=== PATIENT | female | born 1965 | race Hispanic/Latino ===

== ENCOUNTER 2017-03-09 22:45 | Emergency (ER) | payer SELFPAY ==
[~2017-03-09 22:45] MED LIST: GLYB1TAB3 PO; LACT PO; PANT40TA25 PO
[2017-03-09 23:20] LABS: BASOPHILS % (AUTO) 0.7 % (0.0-5.0); HEMATOCRIT 33.2 % (36-48); LYMPHOCYTES % (AUTO) 23.5 % (21.0-51.0); MEAN CORPUSCULAR HEMOGLOBIN 27.7 pg (27.0-33.0); MEAN CORPUSCULAR HGB CONC 33.5 g/dL (32.0-36.0); MEAN CORPUSCULAR VOLUME 82.9 fL (79-99); MONOCYTES % (AUTO) 8.9 % (3.0-13.0); NEUTROPHILS % (AUTO) 63.9 % (40.0-77.0); PLATELET COUNT (AUTO) 89 K/uL (130-400); RED CELL DISTRIBUTION WIDTH 16.1 % (11.0-15.5); WHITE BLOOD COUNT (AUTO) 5.4 K/uL (4.8-10.8)
[2017-03-09 23:27] LABS: APPEARANCE,URINE Clear (CLEAR); BILIRUBIN,URINE Negative (NEGATIVE); COLOR,URINE Yellow (YELLOW); GLUCOSE, URINE (UA) Negative (NEGATIVE); KETONES,URINE Negative (NEGATIVE); LEUKOCYTE ESTERASE ,URINE Trace (NEGATIVE); NITRATE,URINE Negative (NEGATIVE); OCCULT BLOOD,URINE Negative (NEGATIVE); PH,URINE 8.5 (5.0-8.0); PROTEIN,URINE Negative (NEGATIVE); UROBILINOGEN,URINE 0.2 mg/dL (0.2-1.0)
[2017-03-09 23:30] LABS: CREATININE 0.6 mg/dL (0.5-1.5); POTASSIUM 3.9 mmol/L (3.5-5.1)
[2017-03-09 23:35] LABS: BACTERIA,URINE None Seen /HPF (None Seen); MUCUS,URINE Few LPF (None Seen); RBC,URINE None Seen /HPF (0-1); SQUAMOUS EPITHELIAL CELL,UR Few /LPF (0-2)
[2017-03-09 23:43] LABS: ALBUMIN 3.3 g/dL (3.5-5.0); BILIRUBIN,TOTAL 0.5 mg/dL (0.2-1.0); TOTAL PROTEIN, SERUM 8.3 g/dL (6.0-8.3)
[2017-03-09] MEDS ORDERED: LIDOCAINE HCL 2% VISCOUS 15 ML UDCUP ONE (23:53)
[2017-03-09] MEDS ORDERED: ONDANSETRON ODT 4 MG TAB ONE (23:53)
[2017-03-09] MEDS ORDERED: MAGNESIUM HYDROXIDE 30 ML/UDCUP ONE (23:53)
[2017-03-09] MEDS ORDERED: FAMOTIDINE 20MG TAB 20 MG TAB PO ONE (23:53)
[2017-03-10] MEDS ORDERED: FAMOTIDINE 20MG TAB 20 MG TAB ONE (00:06)
== END 2017-03-10 00:29 | disposition home or self-care (01) ==
LOC: EDH 22:45
DX: K29.70 Gastritis, unspecified, without bleeding (principal); K74.69 Other cirrhosis of liver; E11.9 Type 2 diabetes mellitus without complications; Z79.4 Long term (current) use of insulin
CPT/HCPCS: 36415; 80053; 81001; 82550; 83690; 84484; 85025

== ENCOUNTER 2017-12-19 21:03 | Emergency (ER) | payer SELFPAY ==
[2017-12-19 22:04] LABS: APPEARANCE,URINE Clear (CLEAR); BILIRUBIN,URINE Negative (NEGATIVE); COLOR,URINE Yellow (YELLOW); GLUCOSE, URINE (UA) Negative (NEGATIVE); KETONES,URINE Negative (NEGATIVE); LEUKOCYTE ESTERASE ,URINE Trace (NEGATIVE); NITRATE,URINE Negative (NEGATIVE); OCCULT BLOOD,URINE Negative (NEGATIVE); PROTEIN,URINE Negative (NEGATIVE)
[2017-12-19 22:12] LABS: AMPHET/METH SCREEN,URINE NEGATIVE (NEGATIVE); BARBITURATE SCREEN, URINE NEGATIVE (NEGATIVE); BENZODIAZEPINES SCREEN,URINE NEGATIVE (NEGATIVE); CANNABINOID SCREEN,URINE NEGATIVE (NEGATIVE); COCAINE SCREEN,URINE NEGATIVE (NEGATIVE); OPIATE SCREEN,URINE NEGATIVE (NEGATIVE); PHENCYCLIDINE SCREEN,URINE NEGATIVE (NEGATIVE)
[2017-12-19 22:17] LABS: BACTERIA,URINE Rare /HPF (None Seen); WBC,URINE 0-1 /HPF (0-1)
[2017-12-19 22:18] LABS: RBC,URINE None Seen /HPF (0-1)
[2017-12-19 22:29] LABS: BASOPHILS % (AUTO) 0.9 % (0.0-5.0); HEMATOCRIT 37.1 % (36-48); LYMPHOCYTES % (AUTO) 27.4 % (21.0-51.0); MEAN CORPUSCULAR VOLUME 91.5 fL (79-99); MONOCYTES % (AUTO) 11.7 % (3.0-13.0); PLATELET COUNT (AUTO) 82 K/uL (130-400); RED BLOOD CELL COUNT(AUTO) 4.05 MIL/uL (4.00-5.50); RED CELL DISTRIBUTION WIDTH 13.9 % (11.0-15.5); WHITE BLOOD COUNT (AUTO) 4.6 K/uL (4.8-10.8)
[2017-12-19 22:38] LABS: CREATININE 0.7 mg/dL (0.5-1.5); POTASSIUM 4.1 mmol/L (3.5-5.1)
[2017-12-19 22:40] LABS: INR 1.04 (0.85-1.15); PARTIAL THROMBOPLASTIN TIME 27.5 SEC (26.3-35.5); PROTHROMBIN TIME 10.9 SEC (9.6-11.6)
[2017-12-19] MEDS ORDERED: HYOSCYAMINE SULFATE 0.125 MG TAB.SUBL SL ONE (22:41)
[2017-12-19] MEDS ORDERED: ONDANSETRON HCL 4 MG/2 ML VIAL ONE (22:41)
[2017-12-19 22:43] LABS: ALBUMIN 3.4 g/dL (3.5-5.0); BILIRUBIN,TOTAL 0.7 mg/dL (0.2-1.0); TOTAL PROTEIN, SERUM 7.9 g/dL (6.0-8.3)
== END 2017-12-19 23:41 | disposition home or self-care (01) ==
LOC: EDH 21:03
DX: K74.69 Other cirrhosis of liver (principal); D69.59 Other secondary thrombocytopenia; I10 Essential (primary) hypertension
CPT/HCPCS: 36415; 71045; 80053; 80305; 81001; 82150; 82550; 85025; 85610; 85730; 93005; 96374; 99285; J2405

== ENCOUNTER 2022-06-30 20:41 | Emergency (ER) | payer OTHER, SELFPAY ==
[~2022-06-30] VITALS: Ht 152.4 cm; Wt 74.8 kg
[~2022-06-30 20:41] MED LIST changes: -PANT40TA25 PO; +PANT40TA55 PO
[2022-06-30 22:06] LABS: BASOPHILS % (AUTO) 0.5 % (0.0-5.0); EOSINOPHILS % (AUTO) 4.6 % (0.0-8.0); HEMATOCRIT 30.3 % (36-48); LYMPHOCYTES % (AUTO) 20.3 % (21.0-51.0); MEAN CORPUSCULAR HEMOGLOBIN 28.9 pg (27.0-33.0); MEAN CORPUSCULAR HGB CONC 31.7 g/dL (32.0-36.0); MEAN CORPUSCULAR VOLUME 91.3 fL (79-99); MONOCYTES % (AUTO) 12.9 % (3.0-13.0); NEUTROPHILS % (AUTO) 61.2 % (40.0-77.0); PLATELET COUNT (AUTO) 92 K/uL (130-400); RED BLOOD CELL COUNT(AUTO) 3.32 MIL/uL (4.00-5.50); RED CELL DISTRIBUTION WIDTH 14.8 % (11.0-15.5); WHITE BLOOD COUNT (AUTO) 5.7 K/uL (4.8-10.8)
[2022-06-30 22:14] LABS: CREATININE 0.8 mg/dL (0.5-1.5); POTASSIUM 4.4 mmol/L (3.5-5.1)
[2022-06-30 22:15] LABS: INR 1.08 (0.85-1.15); PROTHROMBIN TIME 11.7 SEC (9.6-11.6)
[2022-06-30 22:16] LABS: PARTIAL THROMBOPLASTIN TIME 26.3 SEC (26.3-35.5)
[2022-06-30 22:19] LABS: APPEARANCE,URINE CLEAR (CLEAR); BILIRUBIN,URINE NEGATIVE (NEGATIVE); COLOR,URINE LIGHT-YELLOW (YELLOW); GLUCOSE, URINE (UA) 70 mg/dL (NEGATIVE); KETONES,URINE NEGATIVE (NEGATIVE); LEUKOCYTE ESTERASE ,URINE 250 Leu/uL (NEGATIVE); NITRATE,URINE NEGATIVE (NEGATIVE); OCCULT BLOOD,URINE SMALL (NEGATIVE); PROTEIN,URINE NEGATIVE (NEGATIVE); UROBILINOGEN,URINE 0.2 mg/dL (0.2-1.0)
[2022-06-30 22:19] LABS: ALBUMIN 3.1 g/dL (3.5-5.0); TOTAL PROTEIN, SERUM 7.5 g/dL (6.0-8.3)
[2022-06-30 22:25] LABS: BACTERIA,URINE FEW /HPF (None Seen); RBC,URINE 0-1 /HPF (0-1); SQUAMOUS EPITHELIAL CELL,UR RARE /HPF (0-2); WBC,URINE 26-50 /HPF (0-1)
[2022-07-01 04:49] VITALS: BP 130/66
[2022-07-01] MEDS ORDERED: HYDR25SU38 RC (04:54)
== END 2022-07-01 05:13 | disposition home or self-care (01) ==
LOC: EDH 20:41
DX: K64.9 Unspecified hemorrhoids (principal); I10 Essential (primary) hypertension; E11.9 Type 2 diabetes mellitus without complications; K74.60 Unspecified cirrhosis of liver; Z79.899 Other long term (current) drug therapy; Z98.890 Other specified postprocedural states
CPT/HCPCS: 36415; 80053; 81001; 82140; 85025; 85610; 85730; 86850; 86900; 86901; 87077; 87088; 87186

== ENCOUNTER 2024-06-07 00:02 | Inpatient (IN) | payer BC ==
[~2024-06-07] VITALS: Ht 152.4 cm; Wt 59.6 kg
[~2024-06-07 00:02] MED LIST changes: +HYDR25SU38 RC
[2024-06-07 00:42] LABS: INR 1.18 (0.85-1.15); PROTHROMBIN TIME 12.3 SEC (9.6-11.6)
[2024-06-07 00:44] LABS: BASOPHILS # (AUTO) 0.03 K/uL (0.00-0.20); BASOPHILS % (AUTO) 0.8 % (0.0-5.0); EOSINOPHILS # (AUTO) 0.13 K/uL (0.00-0.70); EOSINOPHILS % (AUTO) 3.4 % (0.0-8.0); HEMATOCRIT 43.4 % (36-48); IMMATURE GRANULOCYTE ABSOLUTE 0.01 K/uL (0-1); LYMPHOCYTES # (AUTO) 0.8 K/uL (1.0-4.8); LYMPHOCYTES % (AUTO) 21.6 % (21.0-51.0); MEAN CORPUSCULAR HEMOGLOBIN 29.3 pg (27.0-33.0); MEAN CORPUSCULAR HGB CONC 32.7 g/dL (32.0-36.0); MEAN CORPUSCULAR VOLUME 89.5 fL (79-99); MONOCYTES # (AUTO) 0.4 K/uL (0.1-1.0); MONOCYTES % (AUTO) 11.1 % (3.0-13.0); NEUTROPHILS # (AUTO) 2.4 K/uL (1.8-7.7); NEUTROPHILS % (AUTO) 62.8 % (40.0-77.0); PARTIAL THROMBOPLASTIN TIME 28.5 SEC (26.3-35.5); PLATELET COUNT (AUTO) 80 K/uL (130-400); RED BLOOD CELL COUNT(AUTO) 4.85 MIL/uL (4.00-5.50); RED CELL DISTRIBUTION WIDTH 18.2 % (11.0-15.5); WHITE BLOOD COUNT (AUTO) 3.8 K/uL (4.8-10.8)
[2024-06-07 00:49] LABS: CREATININE 0.9 mg/dL (0.5-1.0); POTASSIUM 3.5 mmol/L (3.5-5.1)
[2024-06-07 00:54] LABS: MAGNESIUM 1.5 mg/dL (1.80-2.40)
[2024-06-07 01:08] LABS: B-TYPE NATRIURETIC PEPTIDE 66 pg/mL (0-100)
--- NOTE | 2024-06-07 02:09 | ERN ---
General Chief Complaint: Chest Pain Stated Complaint: C/O CP WITH SOB Time Seen by MD: 00:07 Time Seen by Midlevel: 00:07 Source: patient History of Present Illness Initial Comments The patient is a 59-year-old female with a past medical history of type 2 diabetes, hypothyroidism, and liver cirrhosis presenting to the emergency department for evaluation of chest pain and increased shortness of breath. The patient is O2 dependent at home and is usually on 3 L however over the last couple of days she has been having dyspnea on exertion. She reports having previous thoracentesis and today she feels similar to the previous time she was needed one. Denies any other symptoms. Allergies: Coded Allergies: No Known Allergies (Verified Allergy, Unknown, 04/08/15) Home Meds Active Scripts Hydrocortisone Acetate (Anusol-Hc) 25 Mg Supp.rect, 25 MG RC BID for 10 Days, #20 EA 1 Refill Prov:MIGUEL ESCAMILLA MD 07/01/22 Lactulose (Cephulac/Enulose Soln) 20 Gm/30 Ml Soln, 20 GM PO BID for 60 Days, ML Prov:TRISTAN MCKEON MD 12/28/16 Pantoprazole Sodium (Protonix) 40 Mg Ectab, 40 MG PO DAILY, #60 TAB.EC Prov:TRISATN MCKEON MD 04/12/15 Reported Medications Glyburide/Metformin HCl (Glucovance 5-500 mg Tablet) 1 Each Tablet, 0.5 EACH PO DAILYDINNER, TAB 04/10/15 Glyburide/Metformin HCl (Glucovance 5-500 mg Tablet) 1 Each Tablet, 1 EACH PO DAILYBKFST, TAB 04/10/15 Past Medical History Past Medical History: Diabetes-Type II, Hypothyroid, Other Medical History Other: HX OF CIRRHOSIS Past Surgical History: None Surgical History Other: HEMRRHOIDECTOMY X2 JUNE 16, 2022 ROS Dictation CONSTITUTIONAL: Negative except for HPI HEAD/FACE: Negative except for HPI EENT: Negative except for HPI RESPIRATORY: Negative except for HPI GASTROINTESTINAL/ABDOMINAL: Negative except for HPI GENITOURINARY: Negative except for HPI MUSCULOSKELETAL: Negative except for HPI INTEGUMENTARY: Negative except for HPI NEUROLOGICAL/PSYCH: Negative except for HPI HEMATOLOGIC/LYMPHATIC: Negative except for HPI All Systems Negative, Except as noted above. 13 point review of systems assessed and all negative except for above. Physical Exam Physical Exam Dictation Vital Signs reviewed General Appearance: Alert, oriented x 3, no acute distress, chronically ill- appearing Head and Face: non-traumatic. Eyes: PERRL, pink conjunctivas, eyelid no trauma, anterior chamber with arcus senilis. Ears: Pinnas intact and no signs of trauma or erythema ear canals clear and no discharge TM no erythema Nose: No discharge, no bleeding. Oropharynx: Mouth normal, tongue pink, pharynx clear,no erythema, tonsils no exudates, no abscesses noted, mucous membrane moist Neck: Supple, non-tender, no thyromegaly, no masses, no JVD, no bruits Breast:Deferred Chest:No tenderness, no crepitus, no paradoxical movement, no retractions Lungs: Good breath sounds to the left lung field, diminished breath sounds to the right lower lobe, right middle lobe Heart: Regular rate, regular rhythm, no murmur, no gallops Vascular: no peripheral edema, Abdomen: Soft, positive bowel sounds, nondistended, no guarding, nontender, no rebound, no masses no hepatomegaly, no splenomegaly, no Jo's sign, no hernias. Rectal: Deferred Genital: Deferred Neurological: Normal speech, motor function intact, sensory function intact Musculoskeletal: Neck nontender, full range of motion, back nontender, full range of motion, Extremities: nontender, full range of motion Skin: Color pink, dry, no turgor, no rash, no lacerations, no abrasions, no contusions. Lymphatic: Deferred Results Laboratory and Microbiology Lab and Micro Result Laboratory Tests Test 06/07/24 00:23 White Blood Count 3.8 K/uL (4.8-10.8) L Red Blood Count 4.85 MIL/uL (4.00-5.50) Hemoglobin 14.2 g/dL (12.0-16.0) Hematocrit 43.4 % (36-48) Mean Corpuscular Volume 89.5 fL (79-99) Mean Corpuscular Hemoglobin 29.3 pg (27.0-33.0) Mean Corpuscular Hemoglobin Concent 32.7 g/dL (32.0-36.0) Red Cell Distribution Width 18.2 % (11.0-15.5) H Platelet Count 80 K/uL (130-400) L Mean Platelet Volume 10.7 fL (7.5-10.5) H Immature Granulocyte % (Auto) 0.3 % (0-1) Neutrophils (%) (Auto) 62.8 % (40.0-77.0) Lymphocytes (%) (Auto) 21.6 % (21.0-51.0) Monocytes (%) (Auto) 11.1 % (3.0-13.0) Eosinophils (%) (Auto) 3.4 % (0.0-8.0) Basophils (%) (Auto) 0.8 % (0.0-5.0) Neutrophils # (Auto) 2.4 K/uL (1.8-7.7) Lymphocytes # (Auto) 0.8 K/uL (1.0-4.8) L Monocytes # (Auto) 0.4 K/uL (0.1-1.0) Eosinophils # (Auto) 0.13 K/uL (0.00-0.70) Basophils # (Auto) 0.03 K/uL (0.00-0.20) Absolute Immature Granulocyte (auto 0.01 K/uL (0-1) Nucleated Red Blood Cells 0.0 % (0.0-0.19) Red Blood Cell Morphology See comments Prothrombin Time 12.3 SEC (9.6-11.6) H Prothromb Time International Ratio 1.18 (0.85-1.15) H Activated Partial Thromboplast Time 28.5 SEC (26.3-35.5) Sodium Level 141 mmol/L (136-145) Potassium Level 3.5 mmol/L (3.5-5.1) Chloride Level 106 mmol/L (101-111) Carbon Dioxide Level 26 mmol/L (21-32) Blood Urea Nitrogen 12 mg/dL (7-18) Creatinine 0.9 mg/dL (0.5-1.0) Glomerular Filtration Rate Calc 73 mL/min (>90) Random Glucose 161 mg/dL (70-105) H Lactic Acid Level 2.4 mmol/L (0.8-2.5) Total Calcium 9.8 mg/dL (8.5-10.1) Magnesium Level 1.50 mg/dL (1.80-2.40) L Total Creatine Kinase 53 U/L (21-232) # Troponin I High Sensitivity 6 ng/L (4-50) B-Type Natriuretic Peptide 66 pg/mL (0-100) Labs Reviewed?: Yes MDM MDM: Differential diagnosis: Acute on chronic respiratory failure, pleural effusion, pneumonia, pulmonary edema Rationale: Tests considered and ordered secondary to shared decision making include: Previous outside records reviewed: Old ER visits. Risk of complication and/or morbidity or mortality of patient management: None Medications-Per medication reconciliation Need for hospitalization: Patient does meet criteria for hospitalization. Need for emergency major/minor surgery: No There are no social concerns with this patient. Prescription drug management Prescriptions will include symptomatic care Patient's prior external medical records from other ER visits were reviewed by me as indicated. Prior testing and results from previous visits were reviewed. Prior tests were taken into account with medical decision making and resource utilization, independent historian/historians were used to obtain complete medical history. I independently interpreted the test that were performed, results were reviewed by me and considered findings on radiology if ordered. Medical management and examination interpretation discussions were had by me with other qualified healthcare professionals as indicated for the patient's care. ED Course Orders Procedure Category Date Status Time 12 Lead Ekg Tracing- EKG 06/07/24 Logged Technical 00:10 Cbc With Differential LAB 06/07/24 Complete 00:10 Basic Metabolic Panel LAB 06/07/24 Complete 00:10 B-Type Natriuretic LAB 06/07/24 Complete Peptide 00:10 Magnesium LAB 06/07/24 Complete 00:10 Lactic Acid LAB 06/07/24 Complete 00:10 Urinalysis Profile LAB 06/07/24 Logged 00:10 Troponin I High LAB 06/07/24 Complete Sensitivity 00:10 Chest 1vw RAD 06/07/24 Taken 00:10 Pt And Ptt LAB 06/07/24 Complete 00:10 Creatine Kinase, Total LAB 06/07/24 Complete 00:10 Ct Chest W/Contrast CT 06/07/24 Logged 01:14 Vital Signs Date Time Temp Pulse Resp B/P (MAP) Pulse Ox O2 Delivery O2 Flow Rate FiO2 06/07/24 00:20 97.2 86 26 99/56 93 Nasal Cannula* 3 32 06/07/24 00:06 97.0 93 24 108/62 95 Nasal Cannula 3.0 DX & DISP Disposition: Inpatient Decision to Admit Date: Jun 07, 2024 Departure Impression: Primary Impression: Pleural effusion, right Additional Impression: Acute and chronic respiratory failure Condition: Stable Referrals: BIJAN MCKEON MD (PCP) I have reviewed the case, and I agree with, Diagnosis and Plan I performed the substantive portion of the visit. I have reviewed and personally made and approve the management plan that is documented in the note by myself or the AMELIA. I acknowledge for responsibility for the patient's management plan. TODD ALVAREZ Jun 07, 2024 02:09
--- NOTE | 2024-06-07 02:18 | HP ---
[facility] Date of Service: Jun 07, 2024 Time of Service: 02:18 HISTORY OF PRESENT ILLNESS: This is a 59 year old [place]bourgish-speaking female with past medical history of liver cirrhosis,on home O2 dependent , diabetes and hypothyroidism who presents to the ED for complaints of chest pain and shortness of breath which started today.Patient reports having dry cough and body chills which started today as well. Seen and examined patient in the ER awake,alert and coherent appears mild short of breath.Patient reports having chest pain during coughing episode.Patient denies palpitation,nausea,vomiting,sorethoat,edema and abdominal pain. Latest vital signs temperature 97.2 heart rate 86 respiration 26 blood pressure 99/56 saturation 93% on 3 L nasal cannula. Labs WBC 3.8, hemoglobin 14, hematocrit 43 platelet count 80. Glucose 161 lactic acid 2.4 magnesium 1.5 troponin six BNP 66 the rest of the chemistry is unremarkable. EKG unavailable at this time Chest x-ray result is still pending at this time. While in the ER patient received Tylenol 650 mg p.o., Zofran 4 mg IV Rocephin IV. We will admit patient for further medical management. REVIEW OF SYSTEMS CONSTITUTIONAL: Denies fevers, chills, or night sweats. No unintentional weight loss reported. NEUROLOGICAL: Denies headache, amaurosis fugax, motor weakness, sensory deficit, vertigo/spinning sensation, gait abnormalities, or tremors. ENT: No hearing loss, otalgia, otorrhea, rhinitis, rhinorrhea, hoarseness, or sore throat. CARDIOVASCULAR: Positive pleuritic chest pain Denies any exertional angina, dyspnea on exertion, orthopnea, paroxysmal nocturnal dyspnea, palpitations, life-threatening arrhythmias, claudication. PULMONARY: Complains of dry cough shortness of breaths Deniesphlegm/sputum, hemoptysis, SLEEP: Denies morning headaches, daytime somnolence or napping. Denies difficulty falling asleep, staying asleep, waking from sleep. Denies knowledge of snoring. GASTROINTESTINAL: Denies any type of dysphagia to either liquids or solids. Denies nausea, vomiting, pyrosis, early satiety, abdominal pain, diarrhea, constipation, or changes in stool consistency or caliber. Denies coffee-ground emesis, hematemesis, hematochezia, or melanotic stools. GENITOURINARY: Denies frequency, urgency, nocturia, hematuria or incontinence (Storage/Irritative symptoms.) Low urinary stream, straining to void, urinary intermittency or hesitancy, splitting of the voiding stream, terminal dribbling. ENDOCRINOLOGIC: Denies polyuria, polydipsia, polyphagia or heat/cold intoler ances. HEMATOLOGIC: Denies thrombophilia/previous clots, or coagulopathy/bleeding disorders. ONCOLOGIC: Denies personal history of malignancy. DERMATOLOGIC: Denies rashes or pruritus. PSYCHIATRIC: Denies any suicidal or homicidal ideation. Denies hallucinations. PAST MEDICAL HISTORY: [ Liver cirrhosis, oxygen dependent at home, hypertension and hypothyroidism ] PAST SURGICAL HISTORY: [ Patient denies ] PAST SOCIAL HISTORY: [ Patient lives with ileus. Patient denies alcohol tobacco and recreational drug use] FAMILY HISTORY: [ Diabetes ] Coded Allergies: No Known Allergies (Verified Allergy, Unknown, 04/08/15) PHYSICAL EXAM GENERAL APPEARANCE: The patient is awake, alert, and oriented, in no acute cardiopulmonary distress. NEUROLOGICAL: Cranial nerves II-XII grossly intact. Motor is 5/5 in bilateral upper and lower extremities proximal to distal. No sensory deficits. HEENT: Face is symmetric. Pupils are equal and reactive. Extraocular movements are intact. NECK: Supple. No JVD. No thyromegaly. No submental, submandibular, pre- /postauricular, occipital or supraclavicular lymphadenopathy. CHEST: Normal chest expansion. No Telemetry. LUNGS: Diminished right lung sound per auscultation CARDIOVASCULAR: Regular. S1 and S2 normal. No appreciable rubs, murmurs or gallops. ABDOMEN: Soft, nontender, and nondistended. There is no rebound, voluntary guarding, or rigidity. : Deferred. No Jaramillo. EXTREMITIES: Non-edematous and not cyanotic. No clubbing. Good capillary refill. SKIN: No skin breakdown. Vital Sign (Last 24 Hours) 06/07/24 00:20 Temp 97.2 Pulse 86 Resp 26 B/P (MAP) 99/56 Pulse Ox 93 O2 Delivery Nasal Cannula* O2 Flow Rate 3 FiO2 32 LABS: Laboratory: Test 06/07/24 00:23 Range/Units White Blood Count 3.8 L 4.8-10.8 K/uL Red Blood Count 4.85 4.00-5.50 MIL/uL Hemoglobin 14.2 12.0-16.0 g/dL Hematocrit 43.4 36-48 % Mean Corpuscular Volume 89.5 79-99 fL Mean Corpuscular Hemoglobin 29.3 27.0-33.0 pg Mean Corpuscular Hemoglobin Concent 32.7 32.0-36.0 g/dL Red Cell Distribution Width 18.2 H 11.0-15.5 % Platelet Count 80 L 130-400 K/uL Mean Platelet Volume 10.7 H 7.5-10.5 fL Immature Granulocyte % (Auto) 0.3 0-1 % Neutrophils (%) (Auto) 62.8 40.0-77.0 % Lymphocytes (%) (Auto) 21.6 21.0-51.0 % Monocytes (%) (Auto) 11.1 3.0-13.0 % Eosinophils (%) (Auto) 3.4 0.0-8.0 % Basophils (%) (Auto) 0.8 0.0-5.0 % Neutrophils # (Auto) 2.4 1.8-7.7 K/uL Lymphocytes # (Auto) 0.8 L 1.0-4.8 K/uL Monocytes # (Auto) 0.4 0.1-1.0 K/uL Eosinophils # (Auto) 0.13 0.00-0.70 K/uL Basophils # (Auto) 0.03 0.00-0.20 K/uL Absolute Immature Granulocyte (auto 0.01 0-1 K/uL Nucleated Red Blood Cells 0.0 0.0-0.19 % Red Blood Cell Morphology See comments Prothrombin Time 12.3 H 9.6-11.6 SEC Prothromb Time International Ratio 1.18 H 0.85-1.15 Activated Partial Thromboplast Time 28.5 26.3-35.5 SEC Sodium Level 141 136-145 mmol/L Potassium Level 3.5 3.5-5.1 mmol/L Chloride Level 106 101-111 mmol/L Carbon Dioxide Level 26 21-32 mmol/L Blood Urea Nitrogen 12 7-18 mg/dL Creatinine 0.9 0.5-1.0 mg/dL Glomerular Filtration Rate Calc 73 >90 mL/min Random Glucose 161 H 70-105 mg/dL Lactic Acid Level 2.4 0.8-2.5 mmol/L Total Calcium 9.8 8.5-10.1 mg/dL Magnesium Level 1.50 L 1.80-2.40 mg/dL Total Creatine Kinase 53 # 21-232 U/L Troponin I High Sensitivity 6 4-50 ng/L B-Type Natriuretic Peptide 66 0-100 pg/mL DIAGNOSTICS / RADIOLOGY: [ ] ASSESSMENT: Acute on chronic respiratory failure on home O2 POA Acute right pleural effusion POA Acute thrombocytopenia POA Uncontrolled diabetes POA Hypothyroidism POA Hypomagnesemia POA PLAN: We will admit patient in medical telemetry We will start on heart healthy diet We will start on Famotidine 20 mg IV daily for GI prophylaxis We will start on Rocephin 1 g IV daily for empiric coverage We will replace electrolytes as needed per protocol We will start on insulin sliding scale AC & HS with hypoglycemia protocol We will add prn medication for fever,pain,cough , nausea and vomiting We will reconcile home meds once medlist available We will trend troponin q.6 x2 Follow up urinalysis and CT chest result We will seek pulmonology consultation May continue oxygen supplementation to keep saturation above 92% We will request labs in am Further orders to follow depending on above results Case discussed with attending physician and came up with above treatment and plan of care. ADVANCED CARE PLANNING 1. Which of the following were discussed? Hospice Care - No Therapeutic options - Yes Advance Directives - No Other discussions - 2. Discussed with who? Patient and Domo 3. Voluntary nature of this service was explained to the patient? Yes 4. Amount of time spent - __22 5. Reviewed by Physician? (if this service was performed by NPP) Yes Patient seen and examined by me. Agree with note by [employer] SEE ADDITIONAL ORDERS PER CHART DISCUSSED WITH NURSING STAFF RENÉE NEELY PUNCH HAND Jun 07, 2024 02:18
[2024-06-07] MEDS ORDERED: DEXTROSE 50%-WATER 50 ML DISP.SYRIN IV PRN (02:30)
[2024-06-07] MEDS ORDERED: ondanSETRON 4MG INJ IV PRN ×2 (02:30→03:00)
[2024-06-07] MEDS ORDERED: PoTASSium chloRIDE 20MEQ/100ML 100 ML IV PRN (02:30)
[2024-06-07] MEDS ORDERED: PoTASSium chl 10% ELIXIR 20MEQ 20 MEQ/15 ML UDCUP PO PRN (02:30)
[2024-06-07] MEDS ORDERED: GLUCAGON 1MG KIT 1 MG ML IM PRN (02:30)
[2024-06-07] MEDS ORDERED: acetaMINOPHEN 325 MG TAB PO PRN ×3 (02:30→03:00)
[2024-06-07] MEDS ORDERED: guaiFENesin-DM 200/20MG 10ML PO PRN (02:30)
[2024-06-07] MEDS ORDERED: levoFLOXacin 500 MG/D5W 100 ML 100 ML IV SCH (02:30)
[2024-06-07] MEDS ORDERED: cefTRIAXone 1G VIAL 2 GM in 0.9%NACL 100ML 100 ML IV SCH (03:00)
[2024-06-07 03:26] LABS: HEMOGLOBIN A1C 6.3 % (4.0-6.0)
[2024-06-07] MEDS ORDERED: IOHEXOL-350 75 ML VIAL IV ONE (03:53)
[2024-06-07] MEDS: MAGNESIUM 2GM PREMIX 50ML 50 ML IV PRN (06:03)
[2024-06-07] MEDS: furoSEMIDE 20MG VIAL IV ONE (06:03)
[2024-06-07] MEDS: acetaMINOPHEN 325 MG TAB PO PRN (06:04)
[2024-06-07] MEDS: cefTRIAXone 1G VIAL IVPB SCH (06:04)
[2024-06-07 06:11] LABS: BASOPHILS # (AUTO) 0.04 K/uL (0.00-0.20); EOSINOPHILS # (AUTO) 0.17 K/uL (0.00-0.70); EOSINOPHILS % (AUTO) 4.4 % (0.0-8.0); HEMATOCRIT 38.7 % (36-48); IMMATURE GRANULOCYTE ABSOLUTE 0.01 K/uL (0-1); LYMPHOCYTES # (AUTO) 0.6 K/uL (1.0-4.8); LYMPHOCYTES % (AUTO) 16.4 % (21.0-51.0); MEAN CORPUSCULAR HEMOGLOBIN 28.8 pg (27.0-33.0); MONOCYTES # (AUTO) 0.4 K/uL (0.1-1.0); MONOCYTES % (AUTO) 11.5 % (3.0-13.0); NEUTROPHILS # (AUTO) 2.6 K/uL (1.8-7.7); NEUTROPHILS % (AUTO) 66.4 % (40.0-77.0); PLATELET COUNT (AUTO) 68 K/uL (130-400); WHITE BLOOD COUNT (AUTO) 3.8 K/uL (4.8-10.8)
[2024-06-07 06:37] LABS: ALBUMIN 2.4 g/dL (3.5-5.0); BILIRUBIN,TOTAL 0.9 mg/dL (0.2-1.0); CREATININE 0.7 mg/dL (0.5-1.0); MAGNESIUM 1.5 mg/dL (1.80-2.40); POTASSIUM 3.4 mmol/L (3.5-5.1); TOTAL PROTEIN, SERUM 6.8 g/dL (6.0-8.3)
--- NOTE | 2024-06-07 07:04 | EKG ---
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
[2024-06-07] MEDS: INSULIN humuLIN R 100 UNIT/ML 3ML SQ SCH (07:30)
--- NOTE | 2024-06-07 07:30 | NUR ---
PATIENT REFUSED BLOOD GLUCOSE CHECK. STATED SHE WANTED TO REST. EDUCATED PATIENT ON THE IMPORTANCE TO MONITOR BLOOD GLUCOE PER PHYSICIANS ORDERS.
[2024-06-07 07:32] LABS: APPEARANCE,URINE CLEAR (CLEAR); BILIRUBIN,URINE NEGATIVE (NEGATIVE); COLOR,URINE LIGHT-YELLOW (YELLOW); GLUCOSE, URINE (UA) NEGATIVE (NEGATIVE); KETONES,URINE NEGATIVE (NEGATIVE); LEUKOCYTE ESTERASE ,URINE NEGATIVE Leu/uL (NEGATIVE); NITRATE,URINE NEGATIVE (NEGATIVE); OCCULT BLOOD,URINE NEGATIVE (NEGATIVE); PH,URINE 5.5 (5.0-8.0); PROTEIN,URINE NEGATIVE (NEGATIVE); UROBILINOGEN,URINE 0.2 mg/dL (0.2-1.0)
[2024-06-07 07:39] LABS: ADD UA MICROSCOPIC NO
--- NOTE | 2024-06-07 09:21 | HMCIMG ---
CT angiogram chest CLINICAL INDICATION: right pleural effusion COMPARISON: None. CT Dose Index (CTDI): 113.50 mGy Dose Length Product (DLP): 1408.10 total mGy PROTOCOL: Contrast: 100 cc of Isovue-370, injected IV, no complications Examination is done at 2.5 millimeter volumetric acquisition after contrast administration. Photography is done at 5 millimeter thick intervals for the thorax. FINDINGS: There is no evidence of pulmonary embolism. The airway is intact. The trachea and major bronchi are unremarkable. Large right pleural effusion causing complete collapse of the right lung. Left lung is clear. The exam of the kiko and mediastinum is unremarkable. No evidence of hilar enlargement is seen. The aorta shows no aneurysmal dilatation or significant atheromatous calcification. There is no thoracic aortic dissection. No significant brachiocephalic vascular abnormalities are seen. The heart is unremarkable. It is not enlarged. No significant coronary arterial calcifications are seen. There is no pericardial effusion. The rib cage appears unremarkable. The soft tissues of the chest wall are unremarkable. The dorsal spine shows no significant abnormalities. Abdominal findings are suggestive of cirrhosis and portal venous hypertension with irregular liver, ascites, splenomegaly and splenic hilar varices. IMPRESSION: No evidence of pulmonary embolism. Large right pleural effusion causing complete collapse of the right lung. Possible cirrhosis. This study was performed using dose reduction techniques to include automated exposure control and/or adjustment of the mA and/or kV according to patient size.
--- NOTE | 2024-06-07 10:10 | HMCIMG ---
Exam Type: CHEST 1VW Clinical Information: sob Comparison: None Findings and impression: Large right pleural effusion obscuring most of the right lower lobe and right middle lobe. Clear left lung. No other abnormalities.
[2024-06-07] MEDS: FAMOTIDINE 20MG VIAL IV SCH (10:18)
[2024-06-07] MEDS ORDERED: LEVO125T11 PO (12:27)
[2024-06-07] MEDS ORDERED: METF-444 PO (12:27)
[2024-06-07] MEDS ORDERED: SPIR25TA6 PO (12:27)
[2024-06-07] MEDS ORDERED: FURO20TA4 PO (12:27)
[2024-06-07] MEDS ORDERED: NADO20 PO (12:27)
[2024-06-07] MEDS ORDERED: OMEP40CA21 PO (12:27)
[2024-06-07] MEDS ORDERED: PANT40TA54 PO (12:27)
--- NOTE | 2024-06-07 12:27 | NUR ---
PATIENTS HOME MEDICATION IN SYSTEM. WAITING TO BE RECONSILED BY PHYSICIAN.
--- NOTE | 2024-06-07 12:30 | NUR ---
PATIENT REFUSED BLOOD GLUCOSE CHECK
--- NOTE | 2024-06-07 12:46 | NUR ---
BLOOD GLUCOSE 147. NO INSULIN COVERAGE NEEDED AT THIS TIME
--- NOTE | 2024-06-07 12:47 | NUR ---
NOTIFY MR. RAMIREZ OF NEW CONSULT. HE VERBALIZED UNDERTSNDING.
--- NOTE | 2024-06-07 14:44 | NUR ---
PATIENT COMPLAINING OF PAIN. NOTIFY MR. ASHLEY COLBERT FOR BENCHMARK. WAITING FOR ORDERS.
--- NOTE | 2024-06-07 15:20 | NUR ---
SPEECH TRIGGER COMPLETED / RESPIRATORY FAILURE Pt IS A 59 Y.O. FEMALE ADMITTED SECONDARY TO ACUTE ON CHRONIC RESPIRATORY FAILURE AND RIGHT PLEURAL EFFUSION. Pt HAS A PAST MEDICAL HISTORY SIGNIFICANT FOR LIVER CIRRHOSIS, HOME O2 DEPENDENT, DM, AND HYPOTHYROIDISM. PATIENT PRESENTED WITH LARGE RIGHT PLEURAL EFFUSION OBSCURING RIGHT LOWER LOBE AND RIGHT MIDDLE LOBE ON MOST RECENT CHEST X-RAY DURING THIS ADMISSION. Pt CURRENTLY ON HEART HEALTHY DIET (REGULAR TEXTURE AND THIN LIQUIDS). PER NURSE DORSEY, Pt TOLERATING DIET WITH NO OVERT S/S OF ASPIRATION. PLEASE REQUEST SPEECH THERAPY SERVICES FOR SKILLED BEDSIDE SWALLOW EVALUATION IF Pt PRESENTS WITH +S/S OF ASPIRATION SUCH COUGH RESPONSE, THROAT CLEAR, OR WET VOCAL QUALITY DURING ORAL INTAKE. ALL QUESTIONS ANSWERED AT THIS TIME. Addendum: 06/07/[address] SANTI DEVINE Amended: Links added.
--- NOTE | 2024-06-07 15:40 | CONS ---
[facility] CONSULTATION NOTE Date Patient Seen: Jun 07, 2024 Time of Visit: 15:40 Supervising Physician: Dr. Pedro Pablo Salas Reason for Consultation: [ ] Primary Care Physician: [ ] Outpatient Specialists: [ ] Inpatient Consults: [ ] PROBLEM LIST: Acute on chronic respiratory failure on home O2 POA Acute right pleural effusion with mediastinal shift Acute thrombocytopenia POA Uncontrolled diabetes POA Hypothyroidism POA Hypomagnesemia POA HPI: Patient was a 59-year-old female with a past medical history significant for uncontrolled diabetes, hypertension, as well as liver cirrhosis who presented and was admitted with a primary team for acute hypoxic respiratory failure secondary to a right-sided pleural effusion. On evaluation in his discussion with the family at bedside patient was consistently had to receive thoracentesis usually being performed in [place], approximately every two weeks as of nt. At this time we do not have any previous records regarding the fluid analysis of the previous thoracentesis that has been performed. Today on evaluation the patient has a large right-sided pleural effusion with mediastinal shift, patient endorses significant pain on the right side, we will attempt to manage her pain adequately however patient's blood pressure also remained soft at this time. She is currently on 3 L nasal cannula, white count today is 3.8, INR is 1.18, no anticoagulations in the chart or per family. We will monitor the patient overnight and plan for thoracentesis to be performed at bedside tomorrow. Further updates and request for consent to come in the morning. Plan Bedside thoracentesis at bedside tomorrow PAST MEDICAL HX: see above PAST SURGICAL HX: noncontributory SOCIAL HISTORY: No tobacco, ETOH, or illicit drug use Coded Allergies: No Known Allergies (Verified Allergy, Unknown, 04/08/15) REVIEW OF SYSTEMS: 12 point ROS reviewed with patient. Pertinent positives mentioned above. Otherwise negative. PHYSICAL EXAM: GENERAL: alert, weak, awake oriented x 3 HEENT: EOMI, Sclera non icteric, moist mucosa NECK: Supple, no JVD, trachea midline LUNGS: Clear breath sounds bilaterally. No wheezes HEART: Regular rate and rhythm. Normal S1 and S2, without murmurs ABD: Abdomen soft, nontender. Bowel sounds present EXT: No clubbing cyanosis or edema NEURO: Alert and oriented to person, follows commands Vital Signs (last 8hr) Date Time Temp Pulse Resp B/P (MAP) Pulse Ox O2 Delivery O2 Flow Rate FiO2 06/07/24 12:00 98.4 85 19 107/64 93 Nasal Cannula* 3 32 LABS: Hematology Labs: Test 06/07/24 05:59 06/07/24 00:23 Range/Units White Blood Count 3.8 L 4.8-10.8 K/uL Red Blood Count 4.30 4.00-5.50 MIL/uL Hemoglobin 12.4 12.0-16.0 g/dL Hematocrit 38.7 36-48 % Mean Corpuscular Volume 90.0 79-99 fL Mean Corpuscular Hemoglobin 28.8 27.0-33.0 pg Mean Corpuscular Hemoglobin Concent 32.0 32.0-36.0 g/dL Red Cell Distribution Width 18.0 H 11.0-15.5 % Platelet Count 68 L 130-400 K/uL Mean Platelet Volume 11.7 H 7.5-10.5 fL Immature Granulocyte % (Auto) 0.3 0-1 % Neutrophils (%) (Auto) 66.4 40.0-77.0 % Lymphocytes (%) (Auto) 16.4 L 21.0-51.0 % Monocytes (%) (Auto) 11.5 3.0-13.0 % Eosinophils (%) (Auto) 4.4 0.0-8.0 % Basophils (%) (Auto) 1.0 0.0-5.0 % Neutrophils # (Auto) 2.6 1.8-7.7 K/uL Lymphocytes # (Auto) 0.6 L 1.0-4.8 K/uL Monocytes # (Auto) 0.4 0.1-1.0 K/uL Eosinophils # (Auto) 0.17 0.00-0.70 K/uL Basophils # (Auto) 0.04 0.00-0.20 K/uL Absolute Immature Granulocyte (auto 0.01 0-1 K/uL Nucleated Red Blood Cells 0.0 0.0-0.19 % Platelet Morphology Comment See comments Red Blood Cell Morphology See comments Chemistry Labs: Test 06/07/24 12:45 06/07/24 07:27 06/07/24 05:59 06/07/24 00:23 Range/Units Whole Blood Glucose 143 H 70-110 MG/DL Troponin I High Sensitivity 7 4-50 ng/L Sodium Level 140 136-145 mmol/L Potassium Level 3.4 L 3.5-5.1 mmol/L Chloride Level 107 101-111 mmol/L Carbon Dioxide Level 22 21-32 mmol/L Blood Urea Nitrogen 11 7-18 mg/dL Creatinine 0.7 0.5-1.0 mg/dL Glomerular Filtration Rate Calc 99 >90 mL/min Random Glucose 133 H 70-105 mg/dL Lactic Acid Level 2.1 0.8-2.5 mmol/L Total Calcium 9.6 8.5-10.1 mg/dL Magnesium Level 1.50 L 1.80-2.40 mg/dL Total Bilirubin 0.9 0.2-1.0 mg/dL Aspartate Amino Transf (AST/SGOT) 32 10-37 U/L Alanine Aminotransferase (ALT/SGPT) 14 12-78 U/L Alkaline Phosphatase 99 50-136 U/L Total Protein 6.8 6.0-8.3 g/dL Albumin 2.4 L 3.5-5.0 g/dL Procalcitonin < 0.05 L 0.05-0.5 ng/mL Hemoglobin A1c 6.3 H 4.0-6.0 % Estimated Average Glucose (eAG) 134 H 70-126 mg/dL Total Creatine Kinase 53 # 21-232 U/L B-Type Natriuretic Peptide 66 0-100 pg/mL Coagulation Labs: Test 06/07/24 00:23 Range/Units Prothrombin Time 12.3 H 9.6-11.6 SEC Prothromb Time International Ratio 1.18 H 0.85-1.15 Activated Partial Thromboplast Time 28.5 26.3-35.5 SEC DIAGNOSTICS / RADIOLOGY RESULTS: [ ] PLAN NEURO: Minimize central acting medications as possible. Maintain fall precautions, adequate lighting during the day PULMONARY: Supplemental 02 as needed. Maintain aspiration precautions at all times CARDIOVASCULAR: Follow hemodynamics. Vital signs per facility protocol GI & NUTRITION: Continue with nutritional support. Continue stool softeners and laxatives as needed. KIDNEYS & ELECTROLYTES: Strict monitoring of intake, output and overall fluid balance. Avoid nephrotoxic medications to the extent possible. Medications to be dosed according to renal function. Monitor electrolytes and replace as needed ENDOCRINE: Maintain blood glucose between 100-180 at all times. Hypoglycemia protocol in place INFECTIOUS DISEASE: Trend temperature, WBC and procalcitonin level Follow cultures, deescalate antibiotics as soon as possible. Panculture if new onset fever ONCOLOGY/HEMATOLOGY/COAGULATION: Monitor for s/s of bleeding Monitor hemoglobin, coagulation studies as needed SKIN: Pressure ulcer prevention per facility protocol Specialty mattress ORTHO/REHAB: Continue PT/OT Prophylaxis: Continue GI and DVT prophylaxis Code Status: Full Resuscitation Disposition: TBD Other: Total patient care time exceeds 35 minutes excluding all procedures. ASHLEY ZARATE Jun 07, 2024 15:40
--- NOTE | 2024-06-07 16:01 | PN ---
[facility] PROGRESS NOTE Date of Service: Jun 07, 2024 Time of Service: 15:49 SUBJECTIVE: This is a 59 year old Mauritanian-speaking female with past medical history of liver cirrhosis,on home O2 dependent , diabetes and hypothyroidism who presents to the ED for complaints of chest pain and shortness of breath which started today.Patient reports having dry cough and body chills which started today as well. Seen and examined patient in the ER awake,alert and coherent appears mild short of breath.Patient reports having chest pain during coughing episode.Patient denies palpitation,nausea,vomiting,sorethoat,edema and abdominal pain. Latest vital signs temperature 97.2 heart rate 86 respiration 26 blood pressure 99/56 saturation 93% on 3 L nasal cannula. Labs WBC 3.8, hemoglobin 14, hematocrit 43 platelet count 80. Glucose 161 lactic acid 2.4 magnesium 1.5 troponin six BNP 66 the rest of the chemistry is unremarkable. EKG unavailable at this time Chest x-ray result is still pending at this time. While in the ER patient received Tylenol 650 mg p.o., Zofran 4 mg IV Rocephin IV. Patient was admitted for further medical management. 06/07/24 patient was seen and examined in ED 15, with her nurse at the bedside helped with translation. Patient is complaining of dry cough, mild shortness of breath and chest pain. Patient stated that she had thoracentesis done at [facility] last and the removed 2 L of fluid. Magnesium 1.50 and is covered as per the protocol. Potassium 3.4 and replaced. Chest x-ray showed large right pleural effusion. CT chest showed large right pleural effusion causing complete collapse of right lung. Possible cirrhosis. Kidney functions are normal her A1c level is 6.3%. Pulmonology consult is requested for further management of pleural effusion. REVIEW OF SYSTEMS CONSTITUTIONAL: Denies fevers, chills, or night sweats. No unintentional weight loss reported. NEUROLOGICAL: Denies headache, amaurosis fugax, motor weakness, sensory deficit, vertigo/spinning sensation, gait abnormalities, or tremors. ENT: No hearing loss, otalgia, otorrhea, rhinitis, rhinorrhea, hoarseness, or sore throat. CARDIOVASCULAR: Positive pleuritic chest pain Denies any exertional angina, dyspnea on exertion, orthopnea, paroxysmal nocturnal dyspnea, palpitations, life-threatening arrhythmias, claudication. PULMONARY: Complains of dry cough shortness of breaths Deniesphlegm/sputum, hemoptysis, SLEEP: Denies morning headaches, daytime somnolence or napping. Denies difficulty falling asleep, staying asleep, waking from sleep. Denies knowledge of snoring. GASTROINTESTINAL: Denies any type of dysphagia to either liquids or solids. Denies nausea, vomiting, pyrosis, early satiety, abdominal pain, diarrhea, constipation, or changes in stool consistency or caliber. Denies coffee-ground emesis, hematemesis, hematochezia, or melanotic stools. GENITOURINARY: Denies frequency, urgency, nocturia, hematuria or incontinence (Storage/Irritative symptoms.) Low urinary stream, straining to void, urinary intermittency or hesitancy, splitting of the voiding stream, terminal dribbling. ENDOCRINOLOGIC: Denies polyuria, polydipsia, polyphagia or heat/cold intolerances. HEMATOLOGIC: Denies thrombophilia/previous clots, or coagulopathy/bleeding disorders. ONCOLOGIC: Denies personal history of malignancy. DERMATOLOGIC: Denies rashes or pruritus. PSYCHIATRIC: Denies any suicidal or homicidal ideation. Denies hallucinations. PHYSICAL EXAM GENERAL APPEARANCE: The patient is awake, alert, and oriented, in no acute cardiopulmonary distress. NEUROLOGICAL: Cranial nerves II-XII grossly intact. Motor is 5/5 in bilateral upper and lower extremities proximal to distal. No sensory deficits. HEENT: Face is symmetric. Pupils are equal and reactive. Extraocular movements are intact. NECK: Supple. No JVD. No thyromegaly. No submental, submandibular, pre- /postauricular, occipital or supraclavicular lymphadenopathy. CHEST: Normal chest expansion. No Telemetry. LUNGS: Diminished right lung sound per auscultation, percussion on right side. CARDIOVASCULAR: Regular. S1 and S2 normal. No appreciable rubs, murmurs or gallops. ABDOMEN: Soft, nontender, and nondistended. There is no rebound, voluntary guarding, or rigidity. : Deferred. No Jaramillo. EXTREMITIES: Non-edematous and not cyanotic. No clubbing. Good capillary refill. SKIN: No skin breakdown. Vital Signs (last 8hr) Date Time Temp Pulse Resp B/P (MAP) Pulse Ox O2 Delivery O2 Flow Rate FiO2 06/07/24 12:00 98.4 85 19 107/64 93 Nasal Cannula* 3 32 LABS: Laboratory: Test 06/07/24 12:45 06/07/24 07:27 06/07/24 06:49 06/07/24 05:59 Range/Units Whole Blood Glucose 143 H 70-110 MG/DL Troponin I High Sensitivity 7 4-50 ng/L Urine Color LIGHT-YELLOW YELLOW Urine Appearance CLEAR CLEAR Urine pH 5.5 5.0-8.0 Urine Specific [place] 1.029 1.001-1.031 Urine Protein NEGATIVE NEGATIVE mg/dL Urine Glucose (UA) NEGATIVE NEGATIVE mg/dL Urine Ketones NEGATIVE NEGATIVE mg/dL Urine Occult Blood NEGATIVE NEGATIVE Urine Nitrate NEGATIVE NEGATIVE Urine Bilirubin NEGATIVE NEGATIVE mg/dL Urine Urobilinogen 0.2 0.2-1.0 mg/dL Urine Leukocyte Esterase NEGATIVE NEGATIVE Any/uL White Blood Count 3.8 L 4.8-10.8 K/uL Red Blood Count 4.30 4.00-5.50 MIL/uL Hemoglobin 12.4 12.0-16.0 g/dL Hematocrit 38.7 36-48 % Mean Corpuscular Volume 90.0 79-99 fL Mean Corpuscular Hemoglobin 28.8 27.0-33.0 pg Mean Corpuscular Hemoglobin Concent 32.0 32.0-36.0 g/dL Red Cell Distribution Width 18.0 H 11.0-15.5 % Platelet Count 68 L 130-400 K/uL Mean Platelet Volume 11.7 H 7.5-10.5 fL Immature Granulocyte % (Auto) 0.3 0-1 % Neutrophils (%) (Auto) 66.4 40.0-77.0 % Lymphocytes (%) (Auto) 16.4 L 21.0-51.0 % Monocytes (%) (Auto) 11.5 3.0-13.0 % Eosinophils (%) (Auto) 4.4 0.0-8.0 % Basophils (%) (Auto) 1.0 0.0-5.0 % Neutrophils # (Auto) 2.6 1.8-7.7 K/uL Lymphocytes # (Auto) 0.6 L 1.0-4.8 K/uL Monocytes # (Auto) 0.4 0.1-1.0 K/uL Eosinophils # (Auto) 0.17 0.00-0.70 K/uL Basophils # (Auto) 0.04 0.00-0.20 K/uL Absolute Immature Granulocyte (auto 0.01 0-1 K/uL Nucleated Red Blood Cells 0.0 0.0-0.19 % Platelet Morphology Comment See comments Sodium Level 140 136-145 mmol/L Potassium Level 3.4 L 3.5-5.1 mmol/L Chloride Level 107 101-111 mmol/L Carbon Dioxide Level 22 21-32 mmol/L Blood Urea Nitrogen 11 7-18 mg/dL Creatinine 0.7 0.5-1.0 mg/dL Glomerular Filtration Rate Calc 99 >90 mL/min Random Glucose 133 H 70-105 mg/dL Lactic Acid Level 2.1 0.8-2.5 mmol/L Total Calcium 9.6 8.5-10.1 mg/dL Magnesium Level 1.50 L 1.80-2.40 mg/dL Total Bilirubin 0.9 0.2-1.0 mg/dL Aspartate Amino Transf (AST/SGOT) 32 10-37 U/L Alanine Aminotransferase (ALT/SGPT) 14 12-78 U/L Alkaline Phosphatase 99 50-136 U/L Total Protein 6.8 6.0-8.3 g/dL Albumin 2.4 L 3.5-5.0 g/dL Procalcitonin < 0.05 L 0.05-0.5 ng/mL Test 06/07/24 00:23 Range/Units Red Blood Cell Morphology See comments Prothrombin Time 12.3 H 9.6-11.6 SEC Prothromb Time International Ratio 1.18 H 0.85-1.15 Activated Partial Thromboplast Time 28.5 26.3-35.5 SEC Hemoglobin A1c 6.3 H 4.0-6.0 % Estimated Average Glucose (eAG) 134 H 70-126 mg/dL Total Creatine Kinase 53 # 21-232 U/L B-Type Natriuretic Peptide 66 0-100 pg/mL Current Medications Medications (Trade) Dose Ordered Sig/Tatyana Route PRN Reason Start Time Stop Time Status Last Admin Dose Admin Acetaminophen (TYLenol 325MG TAB) 650 mg Q4H PRN PO MILD PAIN (1-3) 06/07/24 02:30 07/07/24 02:29 06/07/24 06:04 650 MG Acetaminophen (TYLenol 325MG TAB) 650 mg Q4H PRN PO MILD PAIN (1-3) 06/07/24 03:00 06/07/24 03:03 DC Acetaminophen (TYLenol 325MG TAB) 650 mg Q6H PRN PO TEMPERATURE GREATER THAN 101.5 06/07/24 02:30 07/07/24 02:29 Acetaminophen (TYLenol 325MG TAB) 650 mg Q6H PRN PO TEMPERATURE GREATER THAN 101.5 06/07/24 03:00 06/07/24 03:03 DC Ceftriaxone Sodium 2 gm/ Sodium Chloride 100 ml @ 200 mls/hr Q24H IV 06/07/24 03:00 06/07/24 03:05 DC Ceftriaxone Sodium (ROCEphine 1G INJ) 1 gm Q24H IVPB 06/07/24 03:30 06/17/24 03:29 06/07/24 06:04 1 GM Dextrose (D50w) 50 ml AD PRN IV HYPOGLYCEMIA PROTOCOL 06/07/24 02:30 07/07/24 02:29 Famotidine (Pepcid 20mg Vial) 20 mg DAILY IV 06/07/24 09:00 07/07/24 08:59 06/07/24 10:18 20 MG Furosemide (LASix 20MG TAB) 20 mg DAILY PO 06/08/24 09:00 07/08/24 08:59 UNV Glucagon (Glucagon 1mg Kit) 1 mg AD PRN IM HYPOGLYCEMIA PROTOCOL 06/07/24 02:30 07/07/24 02:29 Guaifenesin/ Dextromethorphan (RobiTUSSin DM 200/20MG 10ML) 10 ml Q4H PRN PO COUGH 06/07/24 02:30 07/07/24 02:29 Insulin Human Regular (humuLIN R 100 UNIT/ML 3ML) INSULIN SLIDING SCAL... ACHS SQ 06/07/24 07:30 07/07/24 07:29 Levofloxacin/ Dextrose 100 ml @ 100 mls/hr Q48H IV 06/07/24 02:30 06/07/24 03:14 DC Levothyroxine Sodium (SYNTHroid 125MCG TAB) 125 mcg DAILY PO 06/08/24 09:00 07/08/24 08:59 UNV Magnesium Sulfate 50 ml @ 0 mls/hr PROTOCOL PRN IV MAGNESIUM PROTOCOL 06/07/24 05:00 07/07/24 04:59 06/07/24 06:03 25 MLS/HR Miscellaneous Medication (Nadolol (Corgard)) 1 tab DAILY PO 06/08/24 09:00 07/08/24 08:59 UNV Ondansetron HCl (zoFRAN 4MG INJ) 4 mg Q6H PRN IV NAUSEA/VOMITING 06/07/24 02:30 07/07/24 02:29 Ondansetron HCl (zoFRAN 4MG INJ) 4 mg Q6H PRN IV NAUSEA/VOMITING 06/07/24 03:00 06/07/24 03:03 DC Potassium Chloride 100 ml @ 100 mls/hr AD PRN IV POTASSIUM PROTOCOL 06/07/24 02:30 07/07/24 02:29 Potassium Chloride (K-Dur/Klor-Con 20meq) 20 meq AD PRN PO POTASSIUM PROTOCOL 06/07/24 02:30 07/07/24 02:29 Potassium Chloride (KCl 10% Elixir 20meq/15ml) 20 meq AD PRN PO POTASSIUM PROTOCOL 06/07/24 02:30 07/07/24 02:29 Spironolactone (Aldactone 25mg) 25 mg DAILY PO 06/08/24 09:00 07/08/24 08:59 UNV DIAGNOSTICS / RADIOLOGY: [place] [id number] IMAGING REPORT Signed PATIENT: TERESA AREVALO MR#: [id number] : 1965 SEX: F AGE: 59 LOCATION: [facility] ORDER 5 STATUS: ADM IN REPORT#: [id number] SERVICE 3 REASON: right pleural effusion ORDERING PHYSICIAN: TODD ALVAREZ PROCEDURE: CHEST W - CT CHEST W/CONTRAST CT angiogram chest CLINICAL INDICATION: right pleural effusion COMPARISON: None. CT Dose Index (CTDI): 113.50 mGy Dose Length Product (DLP): 1408.10 total mGy PROTOCOL: Contrast: 100 cc of Isovue-370, injected IV, no complications Examination is done at 2.5 millimeter volumetric acquisition after contrast administration. Photography is done at 5 millimeter thick intervals for the thorax. FINDINGS: There is no evidence of pulmonary embolism. The airway is intact. The trachea and major bronchi are unremarkable. Large right pleural effusion causing complete collapse of the right lung. Left lung is clear. The exam of the kiko and mediastinum is unremarkable. No evidence of hilar enlargement is seen. The aorta shows no aneurysmal dilatation or significant atheromatous calcification. There is no thoracic aortic dissection. No significant brachiocephalic vascular abnormalities are seen. The heart is unremarkable. It is not enlarged. No significant coronary arterial calcifications are seen. There is no pericardial effusion. The rib cage appears unremarkable. The soft tissues of the chest wall are unremarkable. The dorsal spine shows no significant abnormalities. Abdominal findings are suggestive of cirrhosis and portal venous hypertension with irregular liver, ascites, splenomegaly and splenic hilar varices. IMPRESSION: No evidence of pulmonary embolism. Large right pleural effusion causing complete collapse of the right lung. Possible cirrhosis. This study was performed using dose reduction techniques to include automated exposure control and/or adjustment of the mA and/or kV according to patient size. DICTATED BY: NIXON RIBEIRO MD DATE: 06/07/24908 ELECTRONICALLY SIGNED BY: NIXON RIBEIRO MD DATE: 06/07/[address] [place] [id number] IMAGING REPORT Signed PATIENT: TERESA AREVALO MR#: [id number] : 1965 SEX: F AGE: 59 LOCATION: [facility] ORDER STATUS: ADM IN REPORT#: [id number] SERVICE REASON: sob ORDERING PHYSICIAN: TODD ALVAREZ PROCEDURE: CXR1VW - CHEST 1VW Exam Type: CHEST 1VW Clinical Information: sob Comparison: None Findings and impression: Large right pleural effusion obscuring most of the right lower lobe and right middle lobe. Clear left lung. No other abnormalities. DICTATED BY: NIOXN RIBEIRO MD DATE: 06/07/24 1005 ELECTRONICALLY SIGNED BY: NIXON RIBEIRO MD DATE: 06/07/24 101 ASSESSMENT: Acute on chronic respiratory failure on home O2 POA Acute right pleural effusion POA Acute thrombocytopenia POA Uncontrolled diabetes POA Hypothyroidism POA Hypomagnesemia POA PLAN: We will admit patient in medical telemetry, waiting on bed on the floor Continue on heart healthy diet Acute on chronic respiratory failure on home O2 POA Acute right pleural effusion POA Continue on3 L oxygen via nasal cannula and is saturating 93% Chest x-ray and CT chest showed large right pleural effusion causing complete collapse of right lung. Pulmonology consult is requested and we will follow their recommendation Patient will need thoracentesis. Her symptoms will resolve with thoracentesis Continue on Rocephin 1 g IV daily for empiric coverage Troponins have been negative, BNP 66 and procalcitonin <0.05 Uncontrolled diabetes POA Her HB A1c 6.3% We will start on insulin sliding scale AC & HS with hypoglycemia protocol Hypothyroidism POA Continue her home medication levothyroxine 125 mcg as prescribed Acute thrombocytopenia [place] [address] [place] [address] Hypomagnesemia POA Magnesium 1.50 and is covered as per protocol Potassium 3.4 and will be replaced SCDs for DVT prophylaxis We will add prn medication for fever,pain,cough , nausea and vomiting We will start on Famotidine 20 mg IV daily for GI prophylaxis ATTESTATION BY PHYSICIAN I have seen and examined the patient. I reviewed the documentation, medical decision making, and treatment plan as noted by the resident provider above. I agree with the findings and plan of care. Pipo Reyes MD, KRUPALI P MD Jun 07, 2024 16:01
--- NOTE | 2024-06-07 16:23 | NUR ---
CALLED DR. KERI SMITH, RESIDENT FOR HOSPITALIST. NOTIFY HER PATIENT IS COMPLAINING OF MODERATE LOWER BACK PAIN. WAITING FOR ORDERS.
--- NOTE | 2024-06-07 16:30 | NUR ---
BLOOD GLUCOSE 117. NO INSULIN COVERAGE NEEDED AT THIS TIME.
[2024-06-07 16:39] VITALS: TEMP 98.4
[2024-06-07] MEDS: acetaMINOPHEN 500 MG TABLET PO ONE (16:39)
[2024-06-07] MEDS: PoTASSium chloRIDE 20MEQ ER 20 MEQ ERTAB PO PRN (16:40)
--- NOTE | 2024-06-07 16:45 | NUR ---
STARTED REPLACING POTASSIUM VIA PO.
--- NOTE | 2024-06-07 17:30 | NUR ---
CALLED FOR REPORT. ROOM NOT CLEAN YET.
--- NOTE | 2024-06-07 17:56 | NUR ---
NURSE MRS. DANIELLE WILL CALL BE IN 5 MINUTES FOR REPORT.
--- NOTE | 2024-06-07 18:20 | NUR ---
CALLED MRS. DANIELLE, GAVE HER REPORT FOR PATIENT. PATIENT WILL BE GOING TO ROOM 409.
[2024-06-07 20:00] VITALS: BP 103/63; PULSE 75; RESP 18; TEMP 98.4
[2024-06-07 23:47] VITALS: BP 111/46; PULSE 80; RESP 19; TEMP 97.9
[2024-06-08] VITALS (7 sets, daily range): BP systolic 89–166; BP diastolic 50–68; PULSE 63–77; RESP 17–19; TEMP 97.7–98.2; O2SAT 92
[2024-06-08 05:23] LABS: BASOPHILS # (AUTO) 0.03 K/uL (0.00-0.20); BASOPHILS % (AUTO) 0.9 % (0.0-5.0); EOSINOPHILS # (AUTO) 0.17 K/uL (0.00-0.70); EOSINOPHILS % (AUTO) 4.9 % (0.0-8.0); HEMATOCRIT 37.3 % (36-48); IMMATURE GRANULOCYTE ABSOLUTE 0.01 K/uL (0-1); LYMPHOCYTES # (AUTO) 0.8 K/uL (1.0-4.8); LYMPHOCYTES % (AUTO) 22.1 % (21.0-51.0); MEAN CORPUSCULAR HEMOGLOBIN 28.9 pg (27.0-33.0); MEAN CORPUSCULAR HGB CONC 32.4 g/dL (32.0-36.0); MONOCYTES # (AUTO) 0.5 K/uL (0.1-1.0); MONOCYTES % (AUTO) 13.2 % (3.0-13.0); NEUTROPHILS % (AUTO) 58.6 % (40.0-77.0); PLATELET COUNT (AUTO) 63 K/uL (130-400); RED BLOOD CELL COUNT(AUTO) 4.19 MIL/uL (4.00-5.50); RED CELL DISTRIBUTION WIDTH 18.1 % (11.0-15.5); WHITE BLOOD COUNT (AUTO) 3.5 K/uL (4.8-10.8)
[2024-06-08 05:38] LABS: CREATININE 0.7 mg/dL (0.5-1.0); POTASSIUM 3.7 mmol/L (3.5-5.1)
[2024-06-08] MEDS: levoTHYROxine 125 MCG TABLET PO SCH (06:15)
[2024-06-08] MEDS: NADOLOL PO SCH (09:00)
[2024-06-08] MEDS: miDODRine HCL 5 MG TABLET PO SCH (11:24)
--- NOTE | 2024-06-08 14:24 | NUR ---
DCP CM MET WITH PT THIS MORNING INITIAL ASSESSMENT DONE. PATIENT IS INDEPENDENT PRIOR TO ADMISSION, LIVES AT HOME WITH HER . PT HAS OWN HOME O2 AT HOME UNABLE TO RECALL COMPANY NAME, ALSO HAS [employer]PM. DENIES ANY OTHER EQUIPMENT/SERVICES. FEELS SAFE TO GO BACK HOME, SPOUSE ABLE TO ASSIST WITH TRANSPORTATION AND NEEDS NECESSARY. DCP HOME ONCE STABLE. CM TO CONTINUE TO FOLLOW UP. Addendum: 06/08/24 at 1425 by PHAN BRAND LVN CM Amended: Links added.
--- NOTE | 2024-06-08 14:29 | PN ---
[facility] PROGRESS NOTE Date Patient Seen: Jun 08, 2024 Time of Visit: 14:17 Supervising Physician: PEDRO ALVA MD Primary Care Physician: [ ] Outpatient Specialists: [ ] Inpatient Consults: [ ] PROBLEM LIST: Acute on chronic hypoxemic respiratory failure on admission Chronic O2 dependent Large right lung pleural effusion with mediastinal shift Essential hypertension Hypothyroidism Type 2 diabetes mellitus Underlying thrombocytopenia INTERVAL HISTORY: Patient is seen and evaluated by me at bedside and the events over the last 24 hours have been noted and updated Patient was started on midodrine every 8 hours due to systolic blood pressure in the low 90s Patient complains of weakness, fatigue and complains of dyspnea on exertion including orthopnea Denies fevers Denies chills Appetite is poor No nausea or vomiting reported REVIEW OF SYSTEMS: 12 point ROS reviewed with patient. Pertinent positives mentioned above. Otherwise negative. PHYSICAL EXAM: GENERAL: alert, weak, awake oriented x 3 HEENT: EOMI, Sclera non icteric, moist mucosa NECK: Supple, no JVD, trachea midline LUNGS: Decreased breath sounds bilaterally, left greater than right. No wheezing HEART: Regular rate and rhythm. Normal S1 and S2, without murmurs ABD: Abdomen soft, nontender. Bowel sounds present EXT: No clubbing cyanosis or edema NEURO: Alert and oriented to person, follows commands Vital Signs (last 8hr) Date Time Temp Pulse Resp B/P (MAP) Pulse Ox O2 Delivery O2 Flow Rate FiO2 06/08/24 13:42 71 18 98/56 91 Nasal Cannula 3.0 06/08/24 11:25 98.1 77 19 99/60 90 Nasal Cannula 3.0 06/08/24 07:59 97.9 75 17 89/50 91 Nasal Cannula 3.0 LABS: Hematology Labs: Test 06/08/24 04:57 06/07/24 05:59 06/07/24 00:23 Range/Units White Blood Count 3.5 L 4.8-10.8 K/uL Red Blood Count 4.19 4.00-5.50 MIL/uL Hemoglobin 12.1 12.0-16.0 g/dL Hematocrit 37.3 36-48 % Mean Corpuscular Volume 89.0 79-99 fL Mean Corpuscular Hemoglobin 28.9 27.0-33.0 pg Mean Corpuscular Hemoglobin Concent 32.4 32.0-36.0 g/dL Red Cell Distribution Width 18.1 H 11.0-15.5 % Platelet Count 63 L 130-400 K/uL Mean Platelet Volume 11.6 H 7.5-10.5 fL Immature Granulocyte % (Auto) 0.3 0-1 % Neutrophils (%) (Auto) 58.6 40.0-77.0 % Lymphocytes (%) (Auto) 22.1 21.0-51.0 % Monocytes (%) (Auto) 13.2 H 3.0-13.0 % Eosinophils (%) (Auto) 4.9 0.0-8.0 % Basophils (%) (Auto) 0.9 0.0-5.0 % Neutrophils # (Auto) 2.0 1.8-7.7 K/uL Lymphocytes # (Auto) 0.8 L 1.0-4.8 K/uL Monocytes # (Auto) 0.5 0.1-1.0 K/uL Eosinophils # (Auto) 0.17 0.00-0.70 K/uL Basophils # (Auto) 0.03 0.00-0.20 K/uL Absolute Immature Granulocyte (auto 0.01 0-1 K/uL Nucleated Red Blood Cells 0.0 0.0-0.19 % Platelet Morphology Comment See comments Red Blood Cell Morphology See comments Chemistry Labs: Test 06/08/24 10:49 06/08/24 04:57 06/07/24 07:27 06/07/24 05:59 Range/Units Whole Blood Glucose 129 H 70-110 MG/DL Sodium Level 140 136-145 mmol/L Potassium Level 3.7 3.5-5.1 mmol/L Chloride Level 109 101-111 mmol/L Carbon Dioxide Level 23 21-32 mmol/L Blood Urea Nitrogen 13 7-18 mg/dL Creatinine 0.7 0.5-1.0 mg/dL Glomerular Filtration Rate Calc 99 >90 mL/min Random Glucose 106 H 70-105 mg/dL Total Calcium 9.3 8.5-10.1 mg/dL Troponin I High Sensitivity 7 4-50 ng/L Lactic Acid Level 2.1 0.8-2.5 mmol/L Magnesium Level 1.50 L 1.80-2.40 mg/dL Total Bilirubin 0.9 0.2-1.0 mg/dL Aspartate Amino Transf (AST/SGOT) 32 10-37 U/L Alanine Aminotransferase (ALT/SGPT) 14 12-78 U/L Alkaline Phosphatase 99 50-136 U/L Total Protein 6.8 6.0-8.3 g/dL Albumin 2.4 L 3.5-5.0 g/dL Procalcitonin < 0.05 L 0.05-0.5 ng/mL Test 06/07/24 00:23 Range/Units Hemoglobin A1c 6.3 H 4.0-6.0 % Estimated Average Glucose (eAG) 134 H 70-126 mg/dL Total Creatine Kinase 53 # 21-232 U/L B-Type Natriuretic Peptide 66 0-100 pg/mL Coagulation Labs: Test 06/07/24 00:23 Range/Units Prothrombin Time 12.3 H 9.6-11.6 SEC Prothromb Time International Ratio 1.18 H 0.85-1.15 Activated Partial Thromboplast Time 28.5 26.3-35.5 SEC DIAGNOSTICS / RADIOLOGY RESULTS: [Imaging scans reviewed at bedside with nurse, CT scan of the chest shows a large pleural effusion to the left lung ] PLAN Continue supplemental oxygen Continue BiPAP as needed Hold off on thoracentesis procedure due to hypotension Continue midodrine to keep systolic blood pressure above 100 Reassess tomorrow NEURO: Minimize central acting medications as possible. Maintain fall precautions, adequate lighting during the day PULMONARY: Supplemental 02 as needed. Maintain aspiration precautions at all times CARDIOVASCULAR: Follow hemodynamics. Vital signs per facility protocol GI & NUTRITION: Continue with nutritional support. Continue stool softeners and laxatives as needed. KIDNEYS & ELECTROLYTES: Strict monitoring of intake, output and overall fluid balance. Avoid nephrotoxic medications to the extent possible. Medications to be dosed according to renal function. Monitor electrolytes and replace as needed ENDOCRINE: Maintain blood glucose between 100-180 at all times. Hypoglycemia protocol in place INFECTIOUS DISEASE: Trend temperature, WBC and procalcitonin level Follow cultures, deescalate antibiotics as soon as possible. Panculture if new onset fever ONCOLOGY/HEMATOLOGY/COAGULATION: Monitor for s/s of bleeding Monitor hemoglobin, coagulation studies as needed SKIN: Pressure ulcer prevention per facility protocol Specialty mattress ORTHO/REHAB: Continue PT/OT Prophylaxis: Continue GI and DVT prophylaxis Code Status: Full Resuscitation Disposition: TBD Other: Total patient care time exceeds 35 minutes excluding all procedures. I personally scribed for PEDRO ALVA MD ([email or web address]) on 06/08/24 at 14:29. Electr onically submitted by Jan Odom ([facility]). PEDRO ALVA MD Jun 08, 2024 14:29
--- NOTE | 2024-06-08 15:05 | PN ---
[facility] PROGRESS NOTE Date of Service: Jun 08, 2024 Time of Service: 14:59 SUBJECTIVE: This is a 59 year old Cambodian-speaking female with past medical history of liver cirrhosis,on home O2 dependent , diabetes and hypothyroidism who presents to the ED for complaints of chest pain and shortness of breath which started today.Patient reports having dry cough and body chills which started today as well. Seen and examined patient in the ER awake,alert and coherent appears mild short of breath.Patient reports having chest pain during coughing episode.Patient denies palpitation,nausea,vomiting,sorethoat,edema and abdominal pain. Latest vital signs temperature 97.2 heart rate 86 respiration 26 blood pressure 99/56 saturation 93% on 3 L nasal cannula. Labs WBC 3.8, hemoglobin 14, hematocrit 43 platelet count 80. Glucose 161 lactic acid 2.4 magnesium 1.5 troponin six BNP 66 the rest of the chemistry is unremarkable. EKG unavailable at this time Chest x-ray result is still pending at this time. While in the ER patient received Tylenol 650 mg p.o., Zofran 4 mg IV Rocephin IV. Patient was admitted for further medical management. 06/07/24 patient was seen and examined in ED 15, with her nurse at the bedside helped with translation. Patient is complaining of dry cough, mild shortness of breath and chest pain. Patient stated that she had thoracentesis done at [facility] last and the removed 2 L of fluid. Magnesium 1.50 and is covered as per the protocol. Potassium 3.4 and replaced. Chest x-ray showed large right pleural effusion. CT chest showed large right pleural effusion causing complete collapse of right lung. Possible cirrhosis. Kidney functions are normal her A1c level is 6.3%. Pulmonology consult is requested for further management of pleural effusion. 06/08/24 the patient was seen and evaluated today morning with her family at the bedside. He is complaining of chest pain and shortness of breath because of the large effusion. She is saturating 91% on 3 L oxygen via nasal cannula. Her blood pressure in the morning was 89/50 mmHg. OG started her on midodrine 10 mg q.i.d. and we will reassess tomorrow for thoracentesis. If blood pressure improves plan for thoracentesis tomorrow. REVIEW OF SYSTEMS CONSTITUTIONAL: Denies fevers, chills, or night sweats. No unintentional weight loss reported. NEUROLOGICAL: Denies headache, amaurosis fugax, motor weakness, sensory deficit, vertigo/spinning sensation, gait abnormalities, or tremors. ENT: No hearing loss, otalgia, otorrhea, rhinitis, rhinorrhea, hoarseness, or sore throat. CARDIOVASCULAR: Positive pleuritic chest pain Denies any exertional angina, dyspnea on exertion, orthopnea, paroxysmal nocturnal dyspnea, palpitations, life-threatening arrhythmias, claudication. PULMONARY: Complains of dry cough shortness of breaths Deniesphlegm/sputum, hemoptysis, SLEEP: Denies morning headaches, daytime somnolence or napping. Denies difficulty falling asleep, staying asleep, waking from sleep. Denies knowledge of snoring. GASTROINTESTINAL: Denies any type of dysphagia to either liquids or solids. Denies nausea, vomiting, pyrosis, early satiety, abdominal pain, diarrhea, constipation, or changes in stool consistency or caliber. Denies coffee-ground emesis, hematemesis, hematochezia, or melanotic stools. GENITOURINARY: Denies frequency, urgency, nocturia, hematuria or incontinence (Storage/Irritative symptoms.) Low urinary stream, straining to void, urinary intermittency or hesitancy, splitting of the voiding stream, terminal dribbling. ENDOCRINOLOGIC: Denies polyuria, polydipsia, polyphagia or heat/cold intolerances. HEMATOLOGIC: Denies thrombophilia/previous clots, or coagulopathy/bleeding disorders. ONCOLOGIC: Denies personal history of malignancy. DERMATOLOGIC: Denies rashes or pruritus. PSYCHIATRIC: Denies any suicidal or homicidal ideation. Denies hallucinations. PHYSICAL EXAM GENERAL APPEARANCE: The patient is awake, alert, and oriented, in no acute cardiopulmonary distress. NEUROLOGICAL: Cranial nerves II-XII grossly intact. Motor is 5/5 in bilateral upper and lower extremities proximal to distal. No sensory deficits. HEENT: Face is symmetric. Pupils are equal and reactive. Extraocular movements are intact. NECK: Supple. No JVD. No thyromegaly. No submental, submandibular, pre- /postauricular, occipital or supraclavicular lymphadenopathy. CHEST: Normal chest expansion. No Telemetry. LUNGS: Diminished right lung sound per auscultation, percussion on right side. CARDIOVASCULAR: Regular. S1 and S2 normal. No appreciable rubs, murmurs or gallops. ABDOMEN: Soft, nontender, and nondistended. There is no rebound, voluntary guarding, or rigidity. : Deferred. No Jaramillo. EXTREMITIES: Non-edematous and not cyanotic. No clubbing. Good capillary refill. SKIN: No skin breakdown. Vital Signs (last 8hr) Date Time Temp Pulse Resp B/P (MAP) Pulse Ox O2 Delivery O2 Flow Rate FiO2 06/08/24 13:42 71 18 98/56 91 Nasal Cannula 3.0 06/08/24 11:25 98.1 77 19 99/60 90 Nasal Cannula 3.0 06/08/24 07:59 97.9 75 17 89/50 91 Nasal Cannula 3.0 LABS: Laboratory: Test 06/08/24 10:49 06/08/24 04:57 06/07/24 07:27 06/07/24 06:49 Range/Units Whole Blood Glucose 129 H 70-110 MG/DL White Blood Count 3.5 L 4.8-10.8 K/uL Red Blood Count 4.19 4.00-5.50 MIL/uL Hemoglobin 12.1 12.0-16.0 g/dL Hematocrit 37.3 36-48 % Mean Corpuscular Volume 89.0 79-99 fL Mean Corpuscular Hemoglobin 28.9 27.0-33.0 pg Mean Corpuscular Hemoglobin Concent 32.4 32.0-36.0 g/dL Red Cell Distribution Width 18.1 H 11.0-15.5 % Platelet Count 63 L 130-400 K/uL Mean Platelet Volume 11.6 H 7.5-10.5 fL Immature Granulocyte % (Auto) 0.3 0-1 % Neutrophils (%) (Auto) 58.6 40.0-77.0 % Lymphocytes (%) (Auto) 22.1 21.0-51.0 % Monocytes (%) (Auto) 13.2 H 3.0-13.0 % Eosinophils (%) (Auto) 4.9 0.0-8.0 % Basophils (%) (Auto) 0.9 0.0-5.0 % Neutrophils # (Auto) 2.0 1.8-7.7 K/uL Lymphocytes # (Auto) 0.8 L 1.0-4.8 K/uL Monocytes # (Auto) 0.5 0.1-1.0 K/uL Eosinophils # (Auto) 0.17 0.00-0.70 K/uL Basophils # (Auto) 0.03 0.00-0.20 K/uL Absolute Immature Granulocyte (auto 0.01 0-1 K/uL Nucleated Red Blood Cells 0.0 0.0-0.19 % Sodium Level 140 136-145 mmol/L Potassium Level 3.7 3.5-5.1 mmol/L Chloride Level 109 101-111 mmol/L Carbon Dioxide Level 23 21-32 mmol/L Blood Urea Nitrogen 13 7-18 mg/dL Creatinine 0.7 0.5-1.0 mg/dL Glomerular Filtration Rate Calc 99 >90 mL/min Random Glucose 106 H 70-105 mg/dL Total Calcium 9.3 8.5-10.1 mg/dL Troponin I High Sensitivity 7 4-50 ng/L Urine Color LIGHT-YELLOW YELLOW Urine Appearance CLEAR CLEAR Urine pH 5.5 5.0-8.0 Urine Specific Eldred 1.029 1.001-1.031 Urine Protein NEGATIVE NEGATIVE mg/dL Urine Glucose (UA) NEGATIVE NEGATIVE mg/dL Urine Ketones NEGATIVE NEGATIVE mg/dL Urine Occult Blood NEGATIVE NEGATIVE Urine Nitrate NEGATIVE NEGATIVE Urine Bilirubin NEGATIVE NEGATIVE mg/dL Urine Urobilinogen 0.2 0.2-1.0 mg/dL Urine Leukocyte Esterase NEGATIVE NEGATIVE Any/uL Test 06/07/24 05:59 06/07/24 00:23 Range/Units Platelet Morphology Comment See comments Lactic Acid Level 2.1 0.8-2.5 mmol/L Magnesium Level 1.50 L 1.80-2.40 mg/dL Total Bilirubin 0.9 0.2-1.0 mg/dL Aspartate Amino Transf (AST/SGOT) 32 10-37 U/L Alanine Aminotransferase (ALT/SGPT) 14 12-78 U/L Alkaline Phosphatase 99 50-136 U/L Total Protein 6.8 6.0-8.3 g/dL Albumin 2.4 L 3.5-5.0 g/dL Procalcitonin < 0.05 L 0.05-0.5 ng/mL Red Blood Cell Morphology See comments Prothrombin Time 12.3 H 9.6-11.6 SEC Prothromb Time International Ratio 1.18 H 0.85-1.15 Activated Partial Thromboplast Time 28.5 26.3-35.5 SEC Hemoglobin A1c 6.3 H 4.0-6.0 % Estimated Average Glucose (eAG) 134 H 70-126 mg/dL Total Creatine Kinase 53 # 21-232 U/L B-Type Natriuretic Peptide 66 0-100 pg/mL Current Medications Medications (Trade) Dose Ordered Sig/Tatyana Route PRN Reason Start Time Stop Time Status Last Admin Dose Admin Acetaminophen (TYLenol 325MG TAB) 650 mg Q4H PRN PO MILD PAIN (1-3) 06/07/24 02:30 07/07/24 02:29 06/08/24 04:38 650 MG Acetaminophen (TYLenol 325MG TAB) 650 mg Q4H PRN PO MILD PAIN (1-3) 06/07/24 03:00 06/07/24 03:03 DC Acetaminophen (TYLenol 325MG TAB) 650 mg Q6H PRN PO TEMPERATURE GREATER THAN 101.5 06/07/24 02:30 07/07/24 02:29 Acetaminophen (TYLenol 325MG TAB) 650 mg Q6H PRN PO TEMPERATURE GREATER THAN 101.5 06/07/24 03:00 06/07/24 03:03 DC Ceftriaxone Sodium 2 gm/ Sodium Chloride 100 ml @ 200 mls/hr Q24H IV 06/07/24 03:00 06/07/24 03:05 DC Ceftriaxone Sodium (ROCEphine 1G INJ) 1 gm Q24H IVPB 06/07/24 03:30 06/17/24 03:29 06/08/24 04:29 1 GM Dextrose (D50w) 50 ml AD PRN IV HYPOGLYCEMIA PROTOCOL 06/07/24 02:30 07/07/24 02:29 Famotidine (Pepcid 20mg Vial) 20 mg DAILY IV 06/07/24 09:00 07/07/24 08:59 06/08/24 09:52 20 MG Furosemide (LASix 20MG TAB) 20 mg DAILY PO 06/08/24 09:00 07/08/24 08:59 Glucagon (Glucagon 1mg Kit) 1 mg AD PRN IM HYPOGLYCEMIA PROTOCOL 06/07/24 02:30 07/07/24 02:29 Guaifenesin/ Dextromethorphan (RobiTUSSin DM 200/20MG 10ML) 10 ml Q4H PRN PO COUGH 06/07/24 02:30 07/07/24 02:29 Home Med (Home Medication) (Nadolol (Corgard) 1 TAB) DAILY PO 06/08/24 09:00 07/08/24 08:59 Insulin Human Regular (humuLIN R 100 UNIT/ML 3ML) INSULIN SLIDING SCAL... ACHS SQ 06/07/24 07:30 07/07/24 07:29 Levofloxacin/ Dextrose 100 ml @ 100 mls/hr Q48H IV 06/07/24 02:30 06/07/24 03:14 DC Levothyroxine Sodium (SYNTHroid 125MCG TAB) 125 mcg SYN PO 06/08/24 06:30 07/08/24 06:29 06/08/24 06:15 125 MCG Magnesium Sulfate 50 ml @ 0 mls/hr PROTOCOL PRN IV MAGNESIUM PROTOCOL 06/07/24 05:00 07/07/24 04:59 06/07/24 06:03 25 MLS/HR Midodrine (PROAMatine 5 MG TABLET) 10 mg Q6H PO 06/08/24 11:30 07/08/24 11:29 06/08/24 11:24 10 MG Ondansetron HCl (zoFRAN 4MG INJ) 4 mg Q6H PRN IV NAUSEA/VOMITING 06/07/24 02:30 07/07/24 02:29 Ondansetron HCl (zoFRAN 4MG INJ) 4 mg Q6H PRN IV NAUSEA/VOMITING 06/07/24 03:00 06/07/24 03:03 DC Potassium Chloride 100 ml @ 100 mls/hr AD PRN IV POTASSIUM PROTOCOL 06/07/24 02:30 07/07/24 02:29 Potassium Chloride (K-Dur/Klor-Con 20meq) 20 meq AD PRN PO POTASSIUM PROTOCOL 06/07/24 02:30 07/07/24 02:29 06/07/24 16:40 20 MEQ Potassium Chloride (KCl 10% Elixir 20meq/15ml) 20 meq AD PRN PO POTASSIUM PROTOCOL 06/07/24 02:30 07/07/24 02:29 Spironolactone (Aldactone 25mg) 25 mg DAILY PO 06/08/24 09:00 07/08/24 08:59 DIAGNOSTICS / RADIOLOGY: [place] [address] [id number] IMAGING REPORT Signed PATIENT: TERESA AREVALO MR#: [id number] : 1965 SEX: F AGE: 59 LOCATION: [facility] ORDER 0011 STATUS: ADM IN REPORT#: [id number] SERVICE 0010 REASON: sob ORDERING PHYSICIAN: TODD ALVAREZ PROCEDURE: CXR1VW - CHEST 1VW Exam Type: CHEST 1VW Clinical Information: sob Comparison: None Findings and impression: Large right pleural effusion obscuring most of the right lower lobe and right middle lobe. Clear left lung. No other abnormalities. DICTATED BY: NIXON RIBEIRO MD DATE: 06/07/24 1005 ELECTRONICALLY SIGNED BY: NIXON RIBEIRO MD DATE: 06/07/24 1010 [place] [address] [id number] IMAGING REPORT Signed PATIENT: TERESA AREVALO MR#: [id number] : 1965 SEX: F AGE: 59 LOCATION: [facility] ORDER 5 STATUS: ADM IN REPORT#: [id number] SERVICE 0114 REASON: right pleural effusion ORDERING PHYSICIAN: TODD ALVAREZ PROCEDURE: CHEST W - CT CHEST W/CONTRAST CT angiogram chest CLINICAL INDICATION: right pleural effusion COMPARISON: None. CT Dose Index (CTDI): 113.50 mGy Dose Length Product (DLP): 1408.10 total mGy PROTOCOL: Contrast: 100 cc of Isovue-370, injected IV, no complications Examination is done at 2.5 millimeter volumetric acquisition after contrast administration. Photography is done at 5 millimeter thick intervals for the thorax. FINDINGS: There is no evidence of pulmonary embolism. The airway is intact. The trachea and major bronchi are unremarkable. Large right pleural effusion causing complete collapse of the right lung. Left lung is clear. The exam of the kiko and mediastinum is unremarkable. No evidence of hilar enlargement is seen. The aorta shows no aneurysmal dilatation or significant atheromatous calcification. There is no thoracic aortic dissection. No significant brachiocephalic vascular abnormalities are seen. The heart is unremarkable. It is not enlarged. No significant coronary arterial calcifications are seen. There is no pericardial effusion. The rib cage appears unremarkable. The soft tissues of the chest wall are unremarkable. The dorsal spine shows no significant abnormalities. Abdominal findings are suggestive of cirrhosis and portal venous hypertension with irregular liver, ascites, splenomegaly and splenic hilar varices. IMPRESSION: No evidence of pulmonary embolism. Large right pleural effusion causing complete collapse of the right lung. Possible cirrhosis. This study was performed using dose reduction techniques to include automated exposure control and/or adjustment of the mA and/or kV according to patient size. DICTATED BY: NIXON RIBEIRO MD DATE: 06/07/24908 ELECTRONICALLY SIGNED BY: NIXON RIBEIRO MD DATE: 06/07/24920 ASSESSMENT: Acute on chronic respiratory failure on home O2 POA Acute right pleural effusion POA Acute thrombocytopenia POA Uncontrolled diabetes POA History of liver cirrhosis POA Hypotension Hypothyroidism POA Hypomagnesemia POA PLAN: We will continue to monitor the patient in medical surgical floor Continue on heart healthy diet Acute on chronic respiratory failure on home O2 POA Acute right pleural effusion POA Continue on 3 L oxygen via nasal cannula and is saturating 93% Chest x-ray and CT chest showed large right pleural effusion causing complete collapse of right lung. Pulmonology consult appreciated and deferred the plan for thoracentesis today because of hypotension. The started on midodrine 10 mg q.i.d. and we will reassess for thoracentesis tomorrow Continue on Rocephin 1 g IV daily for empiric coverage Troponins have been negative, BNP 66 and procalcitonin <0.05 Uncontrolled diabetes POA Her HB A1c 6.3% We will start on insulin sliding scale AC & HS with hypoglycemia protocol Hypothyroidism POA Continue her home medication levothyroxine 125 mcg as prescribed Acute thrombocytopenia [place] [address] [place] [address] Hypotension Blood pressure was 89/50. She is started on midodrine 10 mg q.i.d.. We will hold Lasix and Aldactone if systolic blood pressure below 90. Potassium 3.7 SCDs for DVT prophylaxis Continue prn medication for fever,pain,cough , nausea and vomiting Continue on Famotidine 20 mg IV daily for GI prophylaxis ATTESTATION BY PHYSICIAN I have seen and examined the patient. I reviewed the documentation, medical decision making, and treatment plan as noted by the resident provider above. I agree with the findings and plan of care. Pipo Reyes MD, KRUPALI P MD Jun 08, 2024 15:05
[2024-06-08] MEDS: SPIRONOLACTONE 25 MG TAB PO SCH (15:58)
[2024-06-08] MEDS: furoSEMIDE 20 MG TABLET PO SCH (15:58)
[2024-06-09] VITALS: BP 105/58; PULSE 78; RESP 19; TEMP 98.6
[2024-06-09 04:00] VITALS: BP 103/57; PULSE 68; RESP 19; TEMP 98.1
[2024-06-09 05:40] LABS: BASOPHILS # (AUTO) 0.03 K/uL (0.00-0.20); BASOPHILS % (AUTO) 0.8 % (0.0-5.0); EOSINOPHILS # (AUTO) 0.22 K/uL (0.00-0.70); EOSINOPHILS % (AUTO) 5.9 % (0.0-8.0); HEMATOCRIT 36.1 % (36-48); IMMATURE GRANULOCYTE ABSOLUTE 0.02 K/uL (0-1); LYMPHOCYTES # (AUTO) 0.9 K/uL (1.0-4.8); LYMPHOCYTES % (AUTO) 22.9 % (21.0-51.0); MEAN CORPUSCULAR HEMOGLOBIN 28.8 pg (27.0-33.0); MEAN CORPUSCULAR HGB CONC 32.4 g/dL (32.0-36.0); MEAN CORPUSCULAR VOLUME 88.9 fL (79-99); MONOCYTES # (AUTO) 0.5 K/uL (0.1-1.0); MONOCYTES % (AUTO) 13.7 % (3.0-13.0); NEUTROPHILS # (AUTO) 2.1 K/uL (1.8-7.7); NEUTROPHILS % (AUTO) 56.2 % (40.0-77.0); PLATELET COUNT (AUTO) 60 K/uL (130-400); RED BLOOD CELL COUNT(AUTO) 4.06 MIL/uL (4.00-5.50); RED CELL DISTRIBUTION WIDTH 17.8 % (11.0-15.5); WHITE BLOOD COUNT (AUTO) 3.7 K/uL (4.8-10.8)
[2024-06-09 05:59] LABS: CREATININE 0.7 mg/dL (0.5-1.0)
[2024-06-09 08:00] VITALS: BP 111/60; PULSE 65; RESP 18; TEMP 97.7; O2SAT 90
[2024-06-09 11:38] VITALS: BP 88/50; PULSE 52; RESP 18; TEMP 97.8
--- NOTE | 2024-06-09 13:18 | PN ---
[facility] PROGRESS NOTE Date of Service: Jun 09, 2024 Time of Service: 13:15 SUBJECTIVE: This is a 59 year old Montenegrin-speaking female with past medical history of liver cirrhosis,on home O2 dependent , diabetes and hypothyroidism who presents to the ED for complaints of chest pain and shortness of breath which started today.Patient reports having dry cough and body chills which started today as well. Seen and examined patient in the ER awake,alert and coherent appears mild short of breath.Patient reports having chest pain during coughing episode.Patient denies palpitation,nausea,vomiting,sorethoat,edema and abdominal pain. Latest vital signs temperature 97.2 heart rate 86 respiration 26 blood pressure 99/56 saturation 93% on 3 L nasal cannula. Labs WBC 3.8, hemoglobin 14, hematocrit 43 platelet count 80. Glucose 161 lactic acid 2.4 magnesium 1.5 troponin six BNP 66 the rest of the chemistry is unremarkable. EKG unavailable at this time Chest x-ray result is still pending at this time. While in the ER patient received Tylenol 650 mg p.o., Zofran 4 mg IV Rocephin IV. Patient was admitted for further medical management. 06/07/24 patient was seen and examined in ED 15, with her nurse at the bedside helped with translation. Patient is complaining of dry cough, mild shortness of breath and chest pain. Patient stated that she had thoracentesis done at [facility] last and the removed 2 L of fluid. Magnesium 1.50 and is covered as per the protocol. Potassium 3.4 and replaced. Chest x-ray showed large right pleural effusion. CT chest showed large right pleural effusion causing complete collapse of right lung. Possible cirrhosis. Kidney functions are normal her A1c level is 6.3%. Pulmonology consult is requested for further management of pleural effusion. 06/08/24 the patient was seen and evaluated today morning with her family at the bedside. He is complaining of chest pain and shortness of breath because of the large effusion. She is saturating 91% on 3 L oxygen via nasal cannula. Her blood pressure in the morning was 89/50 mmHg. OG started her on midodrine 10 mg q.i.d. and we will reassess tomorrow for thoracentesis. If blood pressure improves plan for thoracentesis tomorrow. 06/09/24 the patient seen and examined today, with her son at bedside. She is complaining of mild chest pain and shortness of breath. She is also complaining of itching on bilateral thighs. She saturating 90% on 3 L O2 via nasal cannula. Her blood pressure improved and is 111/60 this morning. The plan is for thoracentesis by pulmonology this afternoon. REVIEW OF SYSTEMS CONSTITUTIONAL: Denies fevers, chills, or night sweats. No unintentional weight loss reported. NEUROLOGICAL: Denies headache, amaurosis fugax, motor weakness, sensory deficit, vertigo/spinning sensation, gait abnormalities, or tremors. ENT: No hearing loss, otalgia, otorrhea, rhinitis, rhinorrhea, hoarseness, or sore throat. CARDIOVASCULAR: Positive pleuritic chest pain Denies any exertional angina, dyspnea on exertion, orthopnea, paroxysmal nocturnal dyspnea, palpitations, life-threatening arrhythmias, claudication. PULMONARY: Complains of dry cough shortness of breaths Deniesphlegm/sputum, hemoptysis, SLEEP: Denies morning headaches, daytime somnolence or napping. Denies difficulty falling asleep, staying asleep, waking from sleep. Denies knowledge of snoring. GASTROINTESTINAL: Denies any type of dysphagia to either liquids or solids. Denies nausea, vomiting, pyrosis, early satiety, abdominal pain, diarrhea, constipation, or changes in stool consistency or caliber. Denies coffee-ground emesis, hematemesis, hematochezia, or melanotic stools. GENITOURINARY: Denies frequency, urgency, nocturia, hematuria or incontinence (Storage/Irritative symptoms.) Low urinary stream, straining to void, urinary intermittency or hesitancy, splitting of the voiding stream, terminal dribbling. ENDOCRINOLOGIC: Denies polyuria, polydipsia, polyphagia or heat/cold intolerances. HEMATOLOGIC: Denies thrombophilia/previous clots, or coagulopathy/bleeding disorders. ONCOLOGIC: Denies personal history of malignancy. DERMATOLOGIC: Denies rashes or pruritus. PSYCHIATRIC: Denies any suicidal or homicidal ideation. Denies hallucinations. PHYSICAL EXAM GENERAL APPEARANCE: The patient is awake, alert, and oriented, in no acute cardiopulmonary distress. NEUROLOGICAL: Cranial nerves II-XII grossly intact. Motor is 5/5 in bilateral upper and lower extremities proximal to distal. No sensory deficits. HEENT: Face is symmetric. Pupils are equal and reactive. Extraocular movements are intact. NECK: Supple. No JVD. No thyromegaly. No submental, submandibular, pre- /postauricular, occipital or supraclavicular lymphadenopathy. CHEST: Normal chest expansion. No Telemetry. LUNGS: Diminished right lung sound per auscultation, percussion on right side. CARDIOVASCULAR: Regular. S1 and S2 normal. No appreciable rubs, murmurs or gallops. ABDOMEN: Soft, nontender, and nondistended. There is no rebound, voluntary guarding, or rigidity. : Deferred. No Jaramillo. EXTREMITIES: Non-edematous and not cyanotic. No clubbing. Good capillary refill. SKIN: No skin breakdown. Vital Signs (last 8hr) Date Time Temp Pulse Resp B/P (MAP) Pulse Ox O2 Delivery O2 Flow Rate FiO2 06/09/24 11:38 97.9 52 18 88/50 97 Nasal Cannula 3.0 06/09/24 08:00 90 Room Air* 0 21 06/09/24 08:00 97.7 65 18 111/60 90 Nasal Cannula 3.0 LABS: Laboratory: Test 06/09/24 10:52 06/09/24 05:29 Range/Units Whole Blood Glucose 129 #H 70-110 MG/DL White Blood Count 3.7 L 4.8-10.8 K/uL Red Blood Count 4.06 4.00-5.50 MIL/uL Hemoglobin 11.7 L 12.0-16.0 g/dL Hematocrit 36.1 36-48 % Mean Corpuscular Volume 88.9 79-99 fL Mean Corpuscular Hemoglobin 28.8 27.0-33.0 pg Mean Corpuscular Hemoglobin Concent 32.4 32.0-36.0 g/dL Red Cell Distribution Width 17.8 H 11.0-15.5 % Platelet Count 60 L 130-400 K/uL Mean Platelet Volume 11.2 H 7.5-10.5 fL Immature Granulocyte % (Auto) 0.5 0-1 % Neutrophils (%) (Auto) 56.2 40.0-77.0 % Lymphocytes (%) (Auto) 22.9 21.0-51.0 % Monocytes (%) (Auto) 13.7 H 3.0-13.0 % Eosinophils (%) (Auto) 5.9 0.0-8.0 % Basophils (%) (Auto) 0.8 0.0-5.0 % Neutrophils # (Auto) 2.1 1.8-7.7 K/uL Lymphocytes # (Auto) 0.9 L 1.0-4.8 K/uL Monocytes # (Auto) 0.5 0.1-1.0 K/uL Eosinophils # (Auto) 0.22 0.00-0.70 K/uL Basophils # (Auto) 0.03 0.00-0.20 K/uL Absolute Immature Granulocyte (auto 0.02 0-1 K/uL Nucleated Red Blood Cells 0.0 0.0-0.19 % Sodium Level 139 136-145 mmol/L Potassium Level 4.0 3.5-5.1 mmol/L Chloride Level 108 101-111 mmol/L Carbon Dioxide Level 24 21-32 mmol/L Blood Urea Nitrogen 13 7-18 mg/dL Creatinine 0.7 0.5-1.0 mg/dL Glomerular Filtration Rate Calc 99 >90 mL/min Random Glucose 88 70-105 mg/dL Total Calcium 9.1 8.5-10.1 mg/dL Current Medications Medications (Trade) Dose Ordered Sig/Tatyana Route PRN Reason Start Time Stop Time Status Last Admin Dose Admin Acetaminophen (TYLenol 325MG TAB) 650 mg Q4H PRN PO MILD PAIN (1-3) 06/07/24 02:30 07/07/24 02:29 06/08/24 04:38 650 MG Acetaminophen (TYLenol 325MG TAB) 650 mg Q4H PRN PO MILD PAIN (1-3) 06/07/24 03:00 06/07/24 03:03 DC Acetaminophen (TYLenol 325MG TAB) 650 mg Q6H PRN PO TEMPERATURE GREATER THAN 101.5 06/07/24 02:30 07/07/24 02:29 Acetaminophen (TYLenol 325MG TAB) 650 mg Q6H PRN PO TEMPERATURE GREATER THAN 101.5 06/07/24 03:00 06/07/24 03:03 DC Ceftriaxone Sodium 2 gm/ Sodium Chloride 100 ml @ 200 mls/hr Q24H IV 06/07/24 03:00 06/07/24 03:05 DC Ceftriaxone Sodium (ROCEphine 1G INJ) 1 gm Q24H IVPB 06/07/24 03:30 06/17/24 03:29 06/09/24 03:25 1 GM Dextrose (D50w) 50 ml AD PRN IV HYPOGLYCEMIA PROTOCOL 06/07/24 02:30 07/07/24 02:29 Famotidine (Pepcid 20mg Vial) 20 mg DAILY IV 06/07/24 09:00 07/07/24 08:59 06/09/24 08:58 20 MG Furosemide (LASix 20MG TAB) 20 mg DAILY PO 06/08/24 09:00 07/08/24 08:59 06/08/24 15:58 20 MG Glucagon (Glucagon 1mg Kit) 1 mg AD PRN IM HYPOGLYCEMIA PROTOCOL 06/07/24 02:30 07/07/24 02:29 Guaifenesin/ Dextromethorphan (RobiTUSSin DM 200/20MG 10ML) 10 ml Q4H PRN PO COUGH 06/07/24 02:30 07/07/24 02:29 Home Med (Home Medication) (Nadolol (Corgard) 1 TAB) DAILY PO 06/08/24 09:00 07/08/24 08:59 Insulin Human Regular (humuLIN R 100 UNIT/ML 3ML) INSULIN SLIDING SCAL... ACHS SQ 06/07/24 07:30 07/07/24 07:29 Levofloxacin/ Dextrose 100 ml @ 100 mls/hr Q48H IV 06/07/24 02:30 06/07/24 03:14 DC Levothyroxine Sodium (SYNTHroid 125MCG TAB) 125 mcg SYN PO 06/08/24 06:30 07/08/24 06:29 06/09/24 06:02 125 MCG Magnesium Sulfate 50 ml @ 0 mls/hr PROTOCOL PRN IV MAGNESIUM PROTOCOL 06/07/24 05:00 07/07/24 04:59 06/07/24 06:03 25 MLS/HR Midodrine (PROAMatine 5 MG TABLET) 10 mg Q6H PO 06/08/24 11:30 07/08/24 11:29 06/09/24 11:46 10 MG Ondansetron HCl (zoFRAN 4MG INJ) 4 mg Q6H PRN IV NAUSEA/VOMITING 06/07/24 02:30 07/07/24 02:29 Ondansetron HCl (zoFRAN 4MG INJ) 4 mg Q6H PRN IV NAUSEA/VOMITING 06/07/24 03:00 06/07/24 03:03 DC Potassium Chloride 100 ml @ 100 mls/hr AD PRN IV POTASSIUM PROTOCOL 06/07/24 02:30 07/07/24 02:29 Potassium Chloride (K-Dur/Klor-Con 20meq) 20 meq AD PRN PO POTASSIUM PROTOCOL 06/07/24 02:30 07/07/24 02:29 06/07/24 16:40 20 MEQ Potassium Chloride (KCl 10% Elixir 20meq/15ml) 20 meq AD PRN PO POTASSIUM PROTOCOL 06/07/24 02:30 07/07/24 02:29 Spironolactone (Aldactone 25mg) 25 mg DAILY PO 06/08/24 09:00 07/08/24 08:59 06/09/24 08:58 25 MG DIAGNOSTICS / RADIOLOGY: [place] [address] IMAGING REPORT Signed PATIENT: TERESA AREVALO MR#: [id number] : 1965 SEX: F AGE: 59 LOCATION: [facility] ORDER 5 STATUS: ADM IN REPORT#: [id number] SERVICE 3 REASON: right pleural effusion ORDERING PHYSICIAN: TODD ALVAREZ PROCEDURE: CHEST W - CT CHEST W/CONTRAST CT angiogram chest CLINICAL INDICATION: right pleural effusion COMPARISON: None. CT Dose Index (CTDI): 113.50 mGy Dose Length Product (DLP): 1408.10 total mGy PROTOCOL: Contrast: 100 cc of Isovue-370, injected IV, no complications Examination is done at 2.5 millimeter volumetric acquisition after contrast administration. Photography is done at 5 millimeter thick intervals for the thorax. FINDINGS: There is no evidence of pulmonary embolism. The airway is intact. The trachea and major bronchi are unremarkable. Large right pleural effusion causing complete collapse of the right lung. Left lung is clear. The exam of the kiko and mediastinum is unremarkable. No evidence of hilar enlargement is seen. The aorta shows no aneurysmal dilatation or significant atheromatous calcification. There is no thoracic aortic dissection. No significant brachiocephalic vascular abnormalities are seen. The heart is unremarkable. It is not enlarged. No significant coronary arterial calcifications are seen. There is no pericardial effusion. The rib cage appears unremarkable. The soft tissues of the chest wall are unremarkable. The dorsal spine shows no significant abnormalities. Abdominal findings are suggestive of cirrhosis and portal venous hypertension with irregular liver, ascites, splenomegaly and splenic hilar varices. IMPRESSION: No evidence of pulmonary embolism. Large right pleural effusion causing complete collapse of the right lung. Possible cirrhosis. This study was performed using dose reduction techniques to include automated exposure control and/or adjustment of the mA and/or kV according to patient size. DICTATED BY: NIXON RIBEIRO MD DATE: 06/07/24908 ELECTRONICALLY SIGNED BY: NIXON RIBEIRO MD DATE: 06/07/249[address] [place] [address] IMAGING REPORT Signed PATIENT: TERESA AREVALO MR#: [id number] : 1965 SEX: F AGE: 59 LOCATION: [facility] ORDER STATUS: ADM IN REPORT#: [id number] SERVICE REASON: sob ORDERING PHYSICIAN: TODD ALVAREZ PROCEDURE: CXR1VW - CHEST 1VW Exam Type: CHEST 1VW Clinical Information: sob Comparison: None Findings and impression: Large right pleural effusion obscuring most of the right lower lobe and right middle lobe. Clear left lung. No other abnormalities. DICTATED BY: NIXON RIBEIRO MD DATE: 06/07/24 1005 ELECTRONICALLY SIGNED BY: NIXON RIBEIRO MD DATE: 06/07/24 1010 ASSESSMENT: Acute on chronic respiratory failure on home O2 POA Acute right pleural effusion POA Acute thrombocytopenia POA Uncontrolled diabetes POA History of liver cirrhosis POA Hypotension Hypothyroidism POA Hypomagnesemia POA PLAN: We will continue to monitor the patient in medical surgical floor Continue on heart healthy diet Acute on chronic respiratory failure on home O2 POA Acute right pleural effusion POA Continue on 3 L oxygen via nasal cannula and is saturating 90% Chest x-ray and CT chest showed large right pleural effusion causing complete collapse of right lung. Pulmonology is planning to do with a right thoracentesis this afternoon. Continue on Rocephin 1 g IV daily for empiric coverage Troponins have been negative, BNP 66 and procalcitonin <0.05 Uncontrolled diabetes POA Her HB A1c 6.3% We will start on insulin sliding scale AC & HS with hypoglycemia protocol Hypothyroidism POA Continue her home medication levothyroxine 125 mcg as prescribed Acute thrombocytopenia [place] [address] [place] [address] Hypotension improving After she had received midodrine yesterday her blood pressure today morning is 111/60. We will hold Lasix and Aldactone if systolic blood pressure below 90. SCDs for DVT prophylaxis Continue prn medication for fever,pain,cough , nausea and vomiting Continue on Famotidine 20 mg IV daily for GI prophylaxis ATTESTATION BY PHYSICIAN I have seen and examined the patient. I reviewed the documentation, medical decision making, and treatment plan as noted by the resident provider above. I agree with the findings and plan of care. Pipo Reyes MD, KRUPALI P MD Jun 09, 2024 13:18
[2024-06-09] MEDS ORDERED: DiphenhydrAMINE 2% CREAM 30 GM TP PRN (13:30)
[2024-06-09 15:51] VITALS: BP 108/51; PULSE 66; RESP 18; TEMP 97.6
[2024-06-09 16:53] LABS: TOTAL PROTEIN, SERUM 6.2 g/dL (6.0-8.3)
[2024-06-09 17:09] LABS: APPEARANCE BODY FLUID CLOUDY (CLEAR); SPECIMENTYPE,BODY FLUID PLEURAL
[2024-06-09 17:10] LABS: COLOR,BODY FLUID YELLOW (LT YELLOW); TOTAL VOLUME,BODY FLUID 2000 mL
[2024-06-09 17:14] LABS: BODY FLUID RBC 3377 /cu. mm.; BODY FLUID WBC 93 /cu. mm.
[2024-06-09 17:18] LABS: GLUCOSE PLEURAL FLUID 147
[2024-06-09 17:20] LABS: PROTEIN PLEURAL FLUID < 2.0 mg/dL
[2024-06-09 17:23] LABS: PH PLEURAL FLUID 7
[2024-06-09 17:46] LABS: BF EOSINOPHIL 1 %; BF LYMPHOCYTE 25 %; BF MACROPHAGE 62; BF MESOTHELIAL 1 %; BF OTHER CELLS 8; BF TOTAL CELLS COUNTED 100
--- NOTE | 2024-06-09 19:22 | PN ---
[facility] PROGRESS NOTE Date Patient Seen: Jun 09, 2024 Time of Visit: 19:22 Supervising Physician: Dr. Isac Williamson Primary Care Physician: [ ] Outpatient Specialists: [ ] Inpatient Consults: [ ] PROBLEM LIST: Acute on chronic hypoxemic respiratory failure on admission Chronic O2 dependent Large right lung pleural effusion with mediastinal shift s/p right bedside thoracentesis with 2 liters removed, pending studies Essential hypertension Hypothyroidism Type 2 diabetes mellitus Underlying thrombocytopenia INTERVAL HISTORY: Patient evaluated at bedside today, she remains hypoxic, currently on midodrine 10 mg t.i.d.. Patient was prepared and underwent bedside thoracentesis today with 2 L of fluid removed. She remains on Lasix 20 mg b.i.d. as well as spironolactone 50 mg b.i.d.. Recommendations for patient to continue with the modifications as outpatient, currently on 3 L nasal cannula but we will wean down as tolerated, continue Rocephin at this time. Pending postprocedure x-ray REVIEW OF SYSTEMS: 12 point ROS reviewed with patient. Pertinent positives mentioned above. Otherwise negative. PHYSICAL EXAM: GENERAL: alert, weak, awake oriented x 3 HEENT: EOMI, Sclera non icteric, moist mucosa NECK: Supple, no JVD, trachea midline LUNGS: Decreased breath sounds bilaterally, left greater than right. No w heezing HEART: Regular rate and rhythm. Normal S1 and S2, without murmurs ABD: Abdomen soft, nontender. Bowel sounds present EXT: No clubbing cyanosis or edema NEURO: Alert and oriented to person, follows commands Vital Signs (last 8hr) Date Time Temp Pulse Resp B/P (MAP) Pulse Ox O2 Delivery O2 Flow Rate FiO2 06/09/24 15:51 97.5 66 18 108/51 95 Nasal Cannula 3.0 06/09/24 11:38 97.9 52 18 88/50 97 Nasal Cannula 3.0 LABS: Hematology Labs: Test 06/09/24 05:29 Range/Units White Blood Count 3.7 L 4.8-10.8 K/uL Red Blood Count 4.06 4.00-5.50 MIL/uL Hemoglobin 11.7 L 12.0-16.0 g/dL Hematocrit 36.1 36-48 % Mean Corpuscular Volume 88.9 79-99 fL Mean Corpuscular Hemoglobin 28.8 27.0-33.0 pg Mean Corpuscular Hemoglobin Concent 32.4 32.0-36.0 g/dL Red Cell Distribution Width 17.8 H 11.0-15.5 % Platelet Count 60 L 130-400 K/uL Mean Platelet Volume 11.2 H 7.5-10.5 fL Immature Granulocyte % (Auto) 0.5 0-1 % Neutrophils (%) (Auto) 56.2 40.0-77.0 % Lymphocytes (%) (Auto) 22.9 21.0-51.0 % Monocytes (%) (Auto) 13.7 H 3.0-13.0 % Eosinophils (%) (Auto) 5.9 0.0-8.0 % Basophils (%) (Auto) 0.8 0.0-5.0 % Neutrophils # (Auto) 2.1 1.8-7.7 K/uL Lymphocytes # (Auto) 0.9 L 1.0-4.8 K/uL Monocytes # (Auto) 0.5 0.1-1.0 K/uL Eosinophils # (Auto) 0.22 0.00-0.70 K/uL Basophils # (Auto) 0.03 0.00-0.20 K/uL Absolute Immature Granulocyte (auto 0.02 0-1 K/uL Nucleated Red Blood Cells 0.0 0.0-0.19 % Chemistry Labs: Test 06/09/24 15:12 06/09/24 05:29 Range/Units Whole Blood Glucose 106 70-110 MG/DL Sodium Level 139 136-145 mmol/L Potassium Level 4.0 3.5-5.1 mmol/L Chloride Level 108 101-111 mmol/L Carbon Dioxide Level 24 21-32 mmol/L Blood Urea Nitrogen 13 7-18 mg/dL Creatinine 0.7 0.5-1.0 mg/dL Glomerular Filtration Rate Calc 99 >90 mL/min Random Glucose 88 70-105 mg/dL Total Calcium 9.1 8.5-10.1 mg/dL Lactate Dehydrogenase 160 81-234 U/L Total Protein 6.2 6.0-8.3 g/dL DIAGNOSTICS / RADIOLOGY RESULTS: [ ] PLAN Continue supplemental oxygen Continue BiPAP as needed Hold off on thoracentesis procedure due to hypotension Continue midodrine to keep systolic blood pressure above 100 Reassess tomorrow NEURO: Minimize central acting medications as possible. Maintain fall precautions, adequate lighting during the day PULMONARY: Supplemental 02 as needed. Maintain aspiration precautions at all times CARDIOVASCULAR: Follow hemodynamics. Vital signs per facility protocol GI & NUTRITION: Continue with nutritional support. Continue stool softeners and laxatives as needed. KIDNEYS & ELECTROLYTES: Strict monitoring of intake, output and overall fluid balance. Avoid nephrotoxic medications to the extent possible. Medications to be dosed according to renal function. Monitor electrolytes and replace as needed ENDOCRINE: Maintain blood glucose between 100-180 at all times. Hypoglycemia protocol in place INFECTIOUS DISEASE: Trend temperature, WBC and procalcitonin level Follow cultures, deescalate antibiotics as soon as possible. Panculture if new onset fever ONCOLOGY/HEMATOLOGY/COAGULATION: Monitor for s/s of bleeding Monitor hemoglobin, coagulation studies as needed SKIN: Pressure ulcer prevention per facility protocol Specialty mattress ORTHO/REHAB: Continue PT/OT Prophylaxis: Continue GI and DVT prophylaxis Code Status: Full Resuscitation Disposition: TBD Other: Total patient care time exceeds 35 minutes excluding all procedures. ASHLEY ZARATE Jun 09, 2024 19:22
[2024-06-09 20:00] VITALS: BP 97/54; PULSE 69; RESP 19; TEMP 98.4; O2SAT 95
--- NOTE | 2024-06-09 21:26 | PRN ---
Procedure performed: Right bedside thoracentesis Thoracentesis US guided Diagnosis: Pleural effusion Body site: Right chest Description of procedure: Consent obtained Time out done Hand hygiene Intraoperative US used to localize pleural fluid and verona the skin at puncture site. Thoracentesis tray used. 2000 ml of Pleural fluid drained Fluid is sent for analysis. Pt tolerated procedure well Post procedure chest x ray was ordered ASHLEY ZARATE Jun 09, 2024 21:26
[2024-06-10] VITALS (7 sets, daily range): BP systolic 87–99; BP diastolic 50–55; PULSE 60–69; RESP 16–19; TEMP 97.7–99; O2SAT 93–96
--- NOTE | 2024-06-10 04:10 | NUR ---
Oxygen Unable to wean patient off oxygen, 87% o2 on room air. Denies shortness of breath. 92%o2 with 2 liters.
[2024-06-10 05:42] LABS: BASOPHILS # (AUTO) 0.03 K/uL (0.00-0.20); BASOPHILS % (AUTO) 0.7 % (0.0-5.0); EOSINOPHILS # (AUTO) 0.18 K/uL (0.00-0.70); EOSINOPHILS % (AUTO) 4.1 % (0.0-8.0); HEMATOCRIT 35.9 % (36-48); IMMATURE GRANULOCYTE ABSOLUTE 0.01 K/uL (0-1); LYMPHOCYTES # (AUTO) 0.9 K/uL (1.0-4.8); LYMPHOCYTES % (AUTO) 20.5 % (21.0-51.0); MEAN CORPUSCULAR HGB CONC 33.1 g/dL (32.0-36.0); MEAN CORPUSCULAR VOLUME 87.6 fL (79-99); MONOCYTES # (AUTO) 0.5 K/uL (0.1-1.0); MONOCYTES % (AUTO) 12.4 % (3.0-13.0); NEUTROPHILS # (AUTO) 2.7 K/uL (1.8-7.7); NEUTROPHILS % (AUTO) 62.1 % (40.0-77.0); PLATELET COUNT (AUTO) 74 K/uL (130-400); WHITE BLOOD COUNT (AUTO) 4.4 K/uL (4.8-10.8)
[2024-06-10 05:53] LABS: CREATININE 0.8 mg/dL (0.5-1.0); POTASSIUM 3.8 mmol/L (3.5-5.1)
[2024-06-10] MEDS: SPIRONOLACTONE 25 MG TAB PO SCH (09:00)
[2024-06-10] MEDS: furoSEMIDE 20 MG TABLET PO SCH (09:11)
--- NOTE | 2024-06-10 09:40 | HMCIMG ---
Exam Type: CHEST 1VW Clinical Information: soa Comparison: CT chest June 07, 2024 Findings and impression: Decrease in size of right pleural effusion. No other interval changes. Clear left lung.
--- NOTE | 2024-06-10 14:12 | PN ---
[facility] PROGRESS NOTE Date of Service: Jun 10, 2024 Time of Service: 14:08 SUBJECTIVE: This is a 59 year old Kuwaiti-speaking female with past medical history of liver cirrhosis,on home O2 dependent , diabetes and hypothyroidism who presents to the ED for complaints of chest pain and shortness of breath which started today.Patient reports having dry cough and body chills which started today as well. Seen and examined patient in the ER awake,alert and coherent appears mild short of breath.Patient reports having chest pain during coughing episode.Patient denies palpitation,nausea,vomiting,sorethoat,edema and abdominal pain. Latest vital signs temperature 97.2 heart rate 86 respiration 26 blood pressure 99/56 saturation 93% on 3 L nasal cannula. Labs WBC 3.8, hemoglobin 14, hematocrit 43 platelet count 80. Glucose 161 lactic acid 2.4 magnesium 1.5 troponin six BNP 66 the rest of the chemistry is unremarkable. EKG unavailable at this time Chest x-ray result is still pending at this time. While in the ER patient received Tylenol 650 mg p.o., Zofran 4 mg IV Rocephin IV. Patient was admitted for further medical management. 06/07/24 patient was seen and examined in ED 15, with her nurse at the bedside helped with translation. Patient is complaining of dry cough, mild shortness of breath and chest pain. Patient stated that she had thoracentesis done at [facility] last and the removed 2 L of fluid. Magnesium 1.50 and is covered as per the protocol. Potassium 3.4 and replaced. Chest x-ray showed large right pleural effusion. CT chest showed large right pleural effusion causing complete collapse of right lung. Possible cirrhosis. Kidney functions are normal her A1c level is 6.3%. Pulmonology consult is requested for further management of pleural effusion. 06/08/24 the patient was seen and evaluated today morning with her family at the bedside. He is complaining of chest pain and shortness of breath because of the large effusion. She is saturating 91% on 3 L oxygen via nasal cannula. Her blood pressure in the morning was 89/50 mmHg. OG started her on midodrine 10 mg q.i.d. and we will reassess tomorrow for thoracentesis. If blood pressure improves plan for thoracentesis tomorrow. 06/09/24 the patient seen and examined today, with her son at bedside. She is complaining of mild chest pain and shortness of breath. She is also complaining of itching on bilateral thighs. She saturating 90% on 3 L O2 via nasal cannula. Her blood pressure improved and is 111/60 this morning. The plan is for thoracentesis by pulmonology this afternoon. 06/10/24 patient seen and examined today morning. She says she is feeling much better today. She is saturating 94% on2 L O2 via nasal cannula. Her blood pressure is on soft side 99/52. Patient's blood pressure being low in 90s. Resume her Lasix and Aldactone and we will monitor her blood pressure for today and possible discharge tomorrow. REVIEW OF SYSTEMS CONSTITUTIONAL: Denies fevers, chills, or night sweats. No unintentional weight loss reported. NEUROLOGICAL: Denies headache, amaurosis fugax, motor weakness, sensory deficit, vertigo/spinning sensation, gait abnormalities, or tremors. ENT: No hearing loss, otalgia, otorrhea, rhinitis, rhinorrhea, hoarseness, or sore throat. CARDIOVASCULAR: Resolved pleuritic chest pain Denies any exertional angina, dyspnea on exertion, orthopnea, paroxysmal nocturnal dyspnea, palpitations, life-threatening arrhythmias, claudication. PULMONARY: Improving shortness of breaths Deniesphlegm/sputum, hemoptysis, SLEEP: Denies morning headaches, daytime somnolence or napping. Denies difficulty falling asleep, staying asleep, waking from sleep. Denies knowledge of snoring. GASTROINTESTINAL: Denies any type of dysphagia to either liquids or solids. Denies nausea, vomiting, pyrosis, early satiety, abdominal pain, diarrhea, constipation, or changes in stool consistency or caliber. Denies coffee-ground emesis, hematemesis, hematochezia, or melanotic stools. GENITOURINARY: Denies frequency, urgency, nocturia, hematuria or incontinence (Storage/Irritative symptoms.) Low urinary stream, straining to void, urinary intermittency or hesitancy, splitting of the voiding stream, terminal dribbling. ENDOCRINOLOGIC: Denies polyuria, polydipsia, polyphagia or heat/cold intolerances. HEMATOLOGIC: Denies thrombophilia/previous clots, or coagulopathy/bleeding disorders. ONCOLOGIC: Denies personal history of malignancy. DERMATOLOGIC: Denies rashes or pruritus. PSYCHIATRIC: Denies any suicidal or homicidal ideation. Denies hallucinations. PHYSICAL EXAM GENERAL APPEARANCE: The patient is awake, alert, and oriented, in no acute cardiopulmonary distress. NEUROLOGICAL: Cranial nerves II-XII grossly intact. Motor is 5/5 in bilateral upper and lower extremities proximal to distal. No sensory deficits. HEENT: Face is symmetric. Pupils are equal and reactive. Extraocular movements are intact. NECK: Supple. No JVD. No thyromegaly. No submental, submandibular, pre- /postauricular, occipital or supraclavicular lymphadenopathy. CHEST: Normal chest expansion. No Telemetry. LUNGS: Diminished right lung sound per auscultation. CARDIOVASCULAR: Regular. S1 and S2 normal. No appreciable rubs, murmurs or gallops. ABDOMEN: Soft, nontender, and nondistended. There is no rebound, voluntary guarding, or rigidity. : Deferred. No Jaramillo. EXTREMITIES: Non-edematous and not cyanotic. No clubbing. Good capillary refill. SKIN: No skin breakdown. Vital Signs (last 8hr) Date Time Temp Pulse Resp B/P (MAP) Pulse Ox O2 Delivery O2 Flow Rate FiO2 06/10/24 11:48 98.2 60 18 95/52 97 Nasal Cannula 2.0 24 06/10/24 07:05 99.0 67 18 99/52 94 Nasal Cannula 2.0 24 LABS: Laboratory: Test 06/10/24 11:01 06/10/24 05:17 06/09/24 16:20 06/09/24 05:29 Range/Units Whole Blood Glucose 132 #H 70-110 MG/DL White Blood Count 4.4 L 4.8-10.8 K/uL Red Blood Count 4.10 4.00-5.50 MIL/uL Hemoglobin 11.9 L 12.0-16.0 g/dL Hematocrit 35.9 L 36-48 % Mean Corpuscular Volume 87.6 79-99 fL Mean Corpuscular Hemoglobin 29.0 27.0-33.0 pg Mean Corpuscular Hemoglobin Concent 33.1 32.0-36.0 g/dL Red Cell Distribution Width 18.0 H 11.0-15.5 % Platelet Count 74 L 130-400 K/uL Mean Platelet Volume 12.1 H 7.5-10.5 fL Immature Granulocyte % (Auto) 0.2 0-1 % Neutrophils (%) (Auto) 62.1 40.0-77.0 % Lymphocytes (%) (Auto) 20.5 L 21.0-51.0 % Monocytes (%) (Auto) 12.4 3.0-13.0 % Eosinophils (%) (Auto) 4.1 0.0-8.0 % Basophils (%) (Auto) 0.7 0.0-5.0 % Neutrophils # (Auto) 2.7 1.8-7.7 K/uL Lymphocytes # (Auto) 0.9 L 1.0-4.8 K/uL Monocytes # (Auto) 0.5 0.1-1.0 K/uL Eosinophils # (Auto) 0.18 0.00-0.70 K/uL Basophils # (Auto) 0.03 0.00-0.20 K/uL Absolute Immature Granulocyte (auto 0.01 0-1 K/uL Nucleated Red Blood Cells 0.0 0.0-0.19 % Sodium Level 138 136-145 mmol/L Potassium Level 3.8 3.5-5.1 mmol/L Chloride Level 107 101-111 mmol/L Carbon Dioxide Level 25 21-32 mmol/L Blood Urea Nitrogen 11 7-18 mg/dL Creatinine 0.8 0.5-1.0 mg/dL Glomerular Filtration Rate Calc 84 >90 mL/min Random Glucose 91 70-105 mg/dL Total Calcium 8.8 8.5-10.1 mg/dL Body Fluid Source PLEURAL Body Fluid Volume 2000 mL Body Fluid Color YELLOW LT YELLOW Body Fluid Supernatant Appearance CLOUDY H CLEAR Body Fluid WBC 93 /cu. mm. Body Fluid RBC 3377 /cu. mm. Body Fluid Neutrophils 3.0 % Body Fluid Lymphocytes 25 % Body Fluid Eosinophils % 1 % Body Fluid Macrophages (%) 62 Body Fluid Mesothelial Cells (%) 1 % Body Fluid Other Cells (%) 8 Pleural Fluid pH 7 Pleural Fluid Total Protein < 2.0 mg/dL Pleural Fluid LDH 56 U/L Pleural Fluid Glucose 147 Lactate Dehydrogenase 160 81-234 U/L Total Protein 6.2 6.0-8.3 g/dL Current Medications Medications (Trade) Dose Ordered Sig/Tatyana Route PRN Reason Start Time Stop Time Status Last Admin Dose Admin Acetaminophen (TYLenol 325MG TAB) 650 mg Q4H PRN PO MILD PAIN (1-3) 06/07/24 02:30 07/07/24 02:29 06/08/24 04:38 650 MG Acetaminophen (TYLenol 325MG TAB) 650 mg Q4H PRN PO MILD PAIN (1-3) 06/07/24 03:00 06/07/24 03:03 DC Acetaminophen (TYLenol 325MG TAB) 650 mg Q6H PRN PO TEMPERATURE GREATER THAN 101.5 06/07/24 02:30 07/07/24 02:29 Acetaminophen (TYLenol 325MG TAB) 650 mg Q6H PRN PO TEMPERATURE GREATER THAN 101.5 06/07/24 03:00 06/07/24 03:03 DC Ceftriaxone Sodium 2 gm/ Sodium Chloride 100 ml @ 200 mls/hr Q24H IV 06/07/24 03:00 06/07/24 03:05 DC Ceftriaxone Sodium (ROCEphine 1G INJ) 1 gm Q24H IVPB 06/07/24 03:30 06/17/24 03:29 06/10/24 03:33 1 GM Dextrose (D50w) 50 ml AD PRN IV HYPOGLYCEMIA PROTOCOL 06/07/24 02:30 07/07/24 02:29 Diphenhydramine HCl (BENAdryl CREAM) 1 APPLICATION Q8H PRN TP ITCHING 06/09/24 13:30 07/09/24 13:29 Famotidine (Pepcid 20mg Vial) 20 mg DAILY IV 06/07/24 09:00 07/07/24 08:59 06/10/24 09:11 20 MG Furosemide (LASix 20MG TAB) 20 mg BID@09,17 PO 06/10/24 09:00 07/10/24 08:59 06/10/24 09:11 20 MG Furosemide (LASix 20MG TAB) 20 mg DAILY PO 06/08/24 09:00 06/09/24 21:36 DC 06/08/24 15:58 20 MG Glucagon (Glucagon 1mg Kit) 1 mg AD PRN IM HYPOGLYCEMIA PROTOCOL 06/07/24 02:30 07/07/24 02:29 Guaifenesin/ Dextromethorphan (RobiTUSSin DM 200/20MG 10ML) 10 ml Q4H PRN PO COUGH 06/07/24 02:30 07/07/24 02:29 Home Med (Home Medication) (Nadolol (Corgard) 1 TAB) DAILY PO 06/08/24 09:00 07/08/24 08:59 Insulin Human Regular (humuLIN R 100 UNIT/ML 3ML) INSULIN SLIDING SCAL... ACHS SQ 06/07/24 07:30 07/07/24 07:29 Levofloxacin/ Dextrose 100 ml @ 100 mls/hr Q48H IV 06/07/24 02:30 06/07/24 03:14 DC Levothyroxine Sodium (SYNTHroid 125MCG TAB) 125 mcg SYN PO 06/08/24 06:30 07/08/24 06:29 06/10/24 05:12 125 MCG Magnesium Sulfate 50 ml @ 0 mls/hr PROTOCOL PRN IV MAGNESIUM PROTOCOL 06/07/24 05:00 07/07/24 04:59 06/07/24 06:03 25 MLS/HR Midodrine (PROAMatine 5 MG TABLET) 10 mg Q6H PO 06/08/24 11:30 07/08/24 11:29 06/10/24 12:14 10 MG Ondansetron HCl (zoFRAN 4MG INJ) 4 mg Q6H PRN IV NAUSEA/VOMITING 06/07/24 02:30 07/07/24 02:29 Ondansetron HCl (zoFRAN 4MG INJ) 4 mg Q6H PRN IV NAUSEA/VOMITING 06/07/24 03:00 06/07/24 03:03 DC Potassium Chloride 100 ml @ 100 mls/hr AD PRN IV POTASSIUM PROTOCOL 06/07/24 02:30 07/07/24 02:29 Potassium Chloride (K-Dur/Klor-Con 20meq) 20 meq AD PRN PO POTASSIUM PROTOCOL 06/07/24 02:30 07/07/24 02:29 06/07/24 16:40 20 MEQ Potassium Chloride (KCl 10% Elixir 20meq/15ml) 20 meq AD PRN PO POTASSIUM PROTOCOL 06/07/24 02:30 07/07/24 02:29 Spironolactone (Aldactone 25mg) 25 mg DAILY PO 06/08/24 09:00 06/09/24 21:36 DC 06/09/24 08:58 25 MG Spironolactone (Aldactone 25mg) 50 mg BID PO 06/10/24 09:00 07/10/24 08:59 DIAGNOSTICS / RADIOLOGY: [place] [address] [place] [id number] IMAGING REPORT Signed PATIENT: TERESA AREVALO MR#: [id number] : 1965 SEX: F AGE: 59 LOCATION: [facility] ORDER STATUS: ADM IN REPORT#: [id number] SERVICE 0915 REASON: soa ORDERING PHYSICIAN: SAGAR OTT MD PROCEDURE: CXR1VW - CHEST 1VW Exam Type: CHEST 1VW Clinical Information: soa Comparison: CT chest June 07, 2024 Findings and impression: Decrease in size of right pleural effusion. No other interval changes. Clear left lung. DICTATED BY: NIXON RIBEIRO MD DATE: 06/10/24 0937 ELECTRONICALLY SIGNED BY: NIXON RIBEIRO MD DATE: 06/10/24 0940 [facility] [address] [place] [id number] IMAGING REPORT Signed PATIENT: TERESA AREVALO MR#: [id number] : 1965 SEX: F AGE: 59 LOCATION: [facility] ORDER STATUS: ADM IN REPORT#: [id number] SERVICE 0010 REASON: sob ORDERING PHYSICIAN: OTDD ALVAREZ PROCEDURE: CXR1VW - CHEST 1VW Exam Type: CHEST 1VW Clinical Information: sob Comparison: None Findings and impression: Large right pleural effusion obscuring most of the right lower lobe and right middle lobe. Clear left lung. No other abnormalities. DICTATED BY: NIXON RIBEIRO MD DATE: 06/07/24 1005 ELECTRONICALLY SIGNED BY: NIXON RIBEIRO MD DATE: 06/07/24 1010 ASSESSMENT: Acute on chronic respiratory failure on home O2 POA Acute right pleural effusion POA Acute thrombocytopenia POA Uncontrolled diabetes POA History of liver cirrhosis POA Hypotension Hypothyroidism POA Hypomagnesemia POA PLAN: We will continue to monitor the patient in medical surgical floor Continue on heart healthy diet Acute on chronic respiratory failure on home O2 POA Acute right pleural effusion POA Continue on 3 L oxygen via nasal cannula and is saturating 90% Chest x-ray and CT chest showed large right pleural effusion causing complete collapse of right lung. Patient had a right thoracentesis yesterday by pulmonology and they were able to remove2 L fluid. Based on fluid analysis her food is transudative. Continue on Rocephin 1 g IV daily for empiric coverage Troponins have been negative, BNP 66 and procalcitonin <0.05 Chest x-ray status post thoracentesis showed decrease in effusion size. Uncontrolled diabetes POA Her HB A1c 6.3% We will start on insulin sliding scale AC & HS with hypoglycemia protocol Hypothyroidism POA Continue her home medication levothyroxine 125 mcg as prescribed Acute thrombocytopenia [place] [address] [place] [address] Hypotension improving Blood pressure Pressure is in 90s. Resume her Aldactone and Lasix and we will monitor her blood pressure today and discharge tomorrow Continue midodrine 10 mg q.i.d. SCDs for DVT prophylaxis Continue prn medication for fever,pain,cough , nausea and vomiting Continue on Famotidine 20 mg IV daily for GI prophylaxis ATTESTATION BY PHYSICIAN I have seen and examined the patient. I reviewed the documentation, medical decision making, and treatment plan as noted by the resident provider above. I agree with the findings and plan of care. Sagar Ott MD, KRUPALI P MD Jun 10, 2024 14:12
--- NOTE | 2024-06-10 14:46 | PN ---
[facility] PROGRESS NOTE Date Patient Seen: Jun 10, 2024 Time of Visit: 14:46 Supervising Physician: Dr. Isac Williamson Primary Care Physician: [ ] Outpatient Specialists: [ ] Inpatient Consults: [ ] PROBLEM LIST: Acute on chronic hypoxemic respiratory failure on admission Chronic O2 dependent Large right lung pleural effusion with mediastinal shift s/p right bedside thoracentesis with 2 liters removed, pending studies Essential hypertension Hypothyroidism Type 2 diabetes mellitus Underlying thrombocytopenia INTERVAL HISTORY: Patient evaluated at bedside today, she removes on 2 L nasal cannula at this time, patient denies any discomfort at the site of the thoracentesis, postprocedural chest x-ray shows remaining fluid in the lower right lung space. Current studies consistent with transudative effusion. Recommendations for the patient to set up outpatient thoracentesis procedures with Interventional Radiology either weekly or biweekly dependent upon the patient's symptomology. Likely hepato thorax secondary to her liver cirrhosis diagnosis. Patient was cleared from a pulmonary standpoint once this is arranged and O2 is weaned. REVIEW OF SYSTEMS: 12 point ROS reviewed with patient. Pertinent positives mentioned above. Otherwise negative. PHYSICAL EXAM: GENERAL: alert, weak, awake oriented x 3 HEENT: EOMI, Sclera non icteric, moist mucosa NECK: Supple, no JVD, trachea midline LUNGS: Decreased breath sounds bilaterally, left greater than right. No wheezing HEART: Regular rate and rhythm. Normal S1 and S2, without murmurs ABD: Abdomen soft, nontender. Bowel sounds present EXT: No clubbing cyanosis or edema NEURO: Alert and oriented to person, follows commands Vital Signs (last 8hr) Date Time Temp Pulse Resp B/P (MAP) Pulse Ox O2 Delivery O2 Flow Rate FiO2 06/10/24 11:48 98.2 60 18 95/52 97 Nasal Cannula 2.0 24 06/10/24 07:05 99.0 67 18 99/52 94 Nasal Cannula 2.0 24 LABS: Hematology Labs: Test 06/10/24 05:17 Range/Units White Blood Count 4.4 L 4.8-10.8 K/uL Red Blood Count 4.10 4.00-5.50 MIL/uL Hemoglobin 11.9 L 12.0-16.0 g/dL Hematocrit 35.9 L 36-48 % Mean Corpuscular Volume 87.6 79-99 fL Mean Corpuscular Hemoglobin 29.0 27.0-33.0 pg Mean Corpuscular Hemoglobin Concent 33.1 32.0-36.0 g/dL Red Cell Distribution Width 18.0 H 11.0-15.5 % Platelet Count 74 L 130-400 K/uL Mean Platelet Volume 12.1 H 7.5-10.5 fL Immature Granulocyte % (Auto) 0.2 0-1 % Neutrophils (%) (Auto) 62.1 40.0-77.0 % Lymphocytes (%) (Auto) 20.5 L 21.0-51.0 % Monocytes (%) (Auto) 12.4 3.0-13.0 % Eosinophils (%) (Auto) 4.1 0.0-8.0 % Basophils (%) (Auto) 0.7 0.0-5.0 % Neutrophils # (Auto) 2.7 1.8-7.7 K/uL Lymphocytes # (Auto) 0.9 L 1.0-4.8 K/uL Monocytes # (Auto) 0.5 0.1-1.0 K/uL Eosinophils # (Auto) 0.18 0.00-0.70 K/uL Basophils # (Auto) 0.03 0.00-0.20 K/uL Absolute Immature Granulocyte (auto 0.01 0-1 K/uL Nucleated Red Blood Cells 0.0 0.0-0.19 % Chemistry Labs: Test 06/10/24 11:01 06/10/24 05:17 06/09/24 05:29 Range/Units Whole Blood Glucose 132 #H 70-110 MG/DL Sodium Level 138 136-145 mmol/L Potassium Level 3.8 3.5-5.1 mmol/L Chloride Level 107 101-111 mmol/L Carbon Dioxide Level 25 21-32 mmol/L Blood Urea Nitrogen 11 7-18 mg/dL Creatinine 0.8 0.5-1.0 mg/dL Glomerular Filtration Rate Calc 84 >90 mL/min Random Glucose 91 70-105 mg/dL Total Calcium 8.8 8.5-10.1 mg/dL Lactate Dehydrogenase 160 81-234 U/L Total Protein 6.2 6.0-8.3 g/dL DIAGNOSTICS / RADIOLOGY RESULTS: [ ] PLAN Continue supplemental oxygen Continue BiPAP as needed Hold off on thoracentesis procedure due to hypotension Continue midodrine to keep systolic blood pressure above 100 Reassess tomorrow NEURO: Minimize central acting medications as possible. Maintain fall precautions, adequate lighting during the day PULMONARY: Supplemental 02 as needed. Maintain aspiration precautions at all times CARDIOVASCULAR: Follow hemodynamics. Vital signs per facility protocol GI & NUTRITION: Continue with nutritional support. Continue stool softeners and laxatives as needed. KIDNEYS & ELECTROLYTES: Strict monitoring of intake, output and overall fluid balance. Avoid nephrotoxic medications to the extent possible. Medications to be dosed according to renal function. Monitor electrolytes and replace as needed ENDOCRINE: Maintain blood glucose between 100-180 at all times. Hypoglycemia protocol in place INFECTIOUS DISEASE: Trend temperature, WBC and procalcitonin level Follow cultures, deescalate antibiotics as soon as possible. Panculture if new onset fever ONCOLOGY/HEMATOLOGY/COAGULATION: Monitor for s/s of bleeding Monitor hemoglobin, coagulation studies as needed SKIN: Pressure ulcer prevention per facility protocol Specialty mattress ORTHO/REHAB: Continue PT/OT Prophylaxis: Continue GI and DVT prophylaxis Code Status: Full Resuscitation Disposition: TBD Other: Total patient care time exceeds 35 minutes excluding all procedures. ASHLEY ZARATE Jun 10, 2024 14:46
--- NOTE | 2024-06-10 16:15 | NUR ---
Soft BP Pt blood pressure was 87/50. ELECTROPHYSIOLOGY SCIENTIST reassessed 2x. Dr. Hawk was notified. Dr. Hawk ordered to hold Lasix & Aldactone were given. Continue to monitor.
[2024-06-10] MEDS ORDERED: IpraTROPium/alBUTERol SULFATE 3 ML SOLUTION IH ONE (23:00)
[2024-06-10] MEDS ORDERED: furoSEMIDE 20MG VIAL IV ONE (23:00)
[2024-06-11] VITALS: BP 92/50; PULSE 73; RESP 20; TEMP 97.5
[2024-06-11 04:00] VITALS: BP 102/53; PULSE 92; RESP 18; TEMP 98.2
[2024-06-11 04:29] LABS: BASOPHILS # (AUTO) 0.03 K/uL (0.00-0.20); BASOPHILS % (AUTO) 0.7 % (0.0-5.0); EOSINOPHILS # (AUTO) 0.27 K/uL (0.00-0.70); IMMATURE GRANULOCYTE ABSOLUTE 0.02 K/uL (0-1); LYMPHOCYTES % (AUTO) 21.6 % (21.0-51.0); MEAN CORPUSCULAR HGB CONC 33.1 g/dL (32.0-36.0); MEAN CORPUSCULAR VOLUME 87.5 fL (79-99); MONOCYTES # (AUTO) 0.7 K/uL (0.1-1.0); MONOCYTES % (AUTO) 15.4 % (3.0-13.0); NEUTROPHILS # (AUTO) 2.5 K/uL (1.8-7.7); NEUTROPHILS % (AUTO) 55.9 % (40.0-77.0); PLATELET COUNT (AUTO) 75 K/uL (130-400); RED CELL DISTRIBUTION WIDTH 17.7 % (11.0-15.5); WHITE BLOOD COUNT (AUTO) 4.5 K/uL (4.8-10.8)
[2024-06-11 04:38] LABS: CREATININE 0.7 mg/dL (0.5-1.0); POTASSIUM 3.5 mmol/L (3.5-5.1)
[2024-06-11 07:54] VITALS: BP 105/54; PULSE 63; RESP 18; TEMP 98.2
[2024-06-11 09:00] VITALS: O2SAT 93
[2024-06-11] MEDS ORDERED: miDODRine HCL 5 MG TABLET PO (11:10)
[2024-06-11] MEDS ORDERED: SPIR25TA6 PO (11:10)
[2024-06-11] MEDS ORDERED: FURO20TA6 PO (11:12)
--- NOTE | 2024-06-11 11:27 | DS ---
Discharge Summary Hospital Course Summary: This is a 59 year old Tamaz[place]-speaking female with past medical history of liver cirrhosis,on home O2 dependent , diabetes and hypothyroidism who presents to the ED for complaints of chest pain and shortness of breath which started today.Patient reports having dry cough and body chills. In the ED she awake,alert and coherent appears mild short of breath. Patient reported having chest pain during coughing episode.Patient denies pa lpitation,nausea,vomiting, sorethoat, edema and abdominal pain. Vital signs in the emergency department showed temperature 97.2 heart rate 86 respiration 26 blood pressure 99/56 saturation 93% on 3 L nasal cannula. In the ED her Labs WBC 3.8, hemoglobin 14, hematocrit 43 platelet count 80. Glucose 161 lactic acid 2.4 magnesium 1.5 troponin six BNP 66 the rest of the chemistry is unremarkable. Chest x-ray on admission showed large left pleural effusion obscuring most of the right lower lobe and right middle lobe While admitted patient was seen by locket maker who recommended a thoracentesis for which2 L were removed. Patient remained in oxygen supplementation, adjustment up to 3 L were done. Medication has been adjusted especially BP and diuretics. At this time she was started with midodrine due to low blood pressure. Though she remained stable, she will continue with home medication and adjusted blood pressure medication was noted. Patient will also be sent home with midodrine to help with her blood pressure. Instructions were given went to give hypertensive medication and the midodrine to the patient. Patient is stable to be discharged home, locket maker is recommending for her to have an and patient follow up with locket maker and also to have outpatient thoracentesis done. This has been discussed with the patient and she verbalized understanding. Patient is able to be discharged today as she continued to be stable. Heel Coverer Machine Operator(s): Dr Williamson- GIOVANNA Procedure(s): s/p Thoracentesis- 2L removed Assessment/Plan: Discharge Diagnoses: Acute on chronic hypoxemic respiratory failure on admission Chronic O2 dependent Large right lung pleural effusion with mediastinal shift s/p right bedside thoracentesis with 2 liters removed, pending studies Essential hypertension Hypothyroidism Type 2 diabetes mellitus Underlying thrombocytopenia Hypotension, started with Midodrine Hypothyroidism POA Hypomagnesemia POA Admitting Diagnoses: Acute on chronic respiratory failure on home O2 POA Acute right pleural effusion POA Acute thrombocytopenia POA Uncontrolled diabetes POA History of liver cirrhosis POA Hypotension Hypothyroidism POA Hypomagnesemia POA Discharge Instructions: Follow-up with PCP in 2-3 days Follow up with locket maker in one week -arrange for outpatient thoracentesis -may adjust O2 at home between 2-3 L per minute via nasal cannula Home Medications: Active Scripts [miDODRine HCL 5 MG TABLET] 5 MG TABLET No Conflict Check, 10 MG PO Q6H, #30 0 Refills Prov:JONAS TOLEDO AGPCNP 06/11/24 Hydrocortisone Acetate (Anusol-Hc) 25 Mg Supp.rect, 25 MG RC BID for 10 Days, #20 EA 1 Refill Prov:MIGUEL ESCAMILLA MD 07/01/22 Lactulose (Cephulac/Enulose Soln) 20 Gm/30 Ml Soln, 20 GM PO BID for 60 Days, ML Prov:TRISTAN MCKEON MD 12/28/16 Pantoprazole Sodium (Protonix) 40 Mg Ectab, 40 MG PO DAILY, #60 TAB.EC Prov:TRISTAN MCKEON MD 04/12/15 Reported Medications Levothyroxine Sodium (Levothyroxine Sodium) 125 Mcg Tablet, 1 TAB PO DAILY 06/07/24 Metformin HCl (Metformin HCl) 500 Mg Tablet, 1 TAB PO DAILY 06/07/24 Pantoprazole Sodium (Pantoprazole Sodium) 40 Mg Tablet.dr, 1 TAB PO BID 06/07/24 Spironolactone (Spironolactone) 25 Mg Tablet, 0.5 TAB PO DAILY 06/07/24 Nadolol (Corgard) 20 Mg Tab, 1 TAB PO DAILY 06/07/24 Omeprazole (Omeprazole) 40 Mg Capsule.dr, 1 CAP PO BID 06/07/24 Furosemide (Furosemide) 20 Mg Tablet, 1 TAB PO DAILY 06/07/24 Glyburide/Metformin HCl (Glucovance 5-500 mg Tablet) 1 Each Tablet, 0.5 EACH PO DAILYDINNER, TAB 04/10/15 Glyburide/Metformin HCl (Glucovance 5-500 mg Tablet) 1 Each Tablet, 1 EACH PO DAILYBKFST, TAB 04/10/15 Time spent arranging discharge: 31-60 minutes ATTESTATION BY PHYSICIAN I have seen and examined the patient. I reviewed the documentation, medical decision making, and treatment plan as noted by the mid-level provider above. I agree with the findings and plan of care. Jesenia Reyes MD, [facility] Jun 11, 2024 11:27
[2024-06-11 11:42] VITALS: BP 90/54; PULSE 70; RESP 18; TEMP 97.8
--- NOTE | 2024-06-11 12:55 | NUR ---
DISCHARGE PT sitting in bed w/ eyes open 0 s/s of distress noted, A&Ox4, able to make needs known, family @ bedside. I.V. removed w/o complications. Discharge given printed and verbal. PT escorted to POV via wheel chair by RAILROAD BRAKE OPERATOR
--- NOTE | 2024-06-11 15:19 | PN ---
[facility] PROGRESS NOTE Date Patient Seen: Jun 11, 2024 Time of Visit: 15:19 Supervising Physician: Dr. Isac Williamson Primary Care Physician: [ ] Outpatient Specialists: [ ] Inpatient Consults: [ ] PROBLEM LIST: Acute on chronic hypoxemic respiratory failure on admission Chronic O2 dependent Large right lung pleural effusion with mediastinal shift s/p right bedside thoracentesis with 2 liters removed, pending studies Essential hypertension Hypothyroidism Type 2 diabetes mellitus Underlying thrombocytopenia INTERVAL HISTORY: Patient evaluated at bedside today, she is currently on room air, patient denies any discomfort at the thoracentesis site, no cough exhibited during my evaluation. Patient has had no nausea or vomiting, no overnight events reported. Patient was advised that she is cleared from a pulmonary standpoint to be discharged home, recommendations to primary regarding setting up outpatient thoracentesis to be performed with Interventional Radiology to prevent further admissions so that patient can be treated as outpatient. REVIEW OF SYSTEMS: 12 point ROS reviewed with patient. Pertinent positives mentioned above. Otherwise negative. PHYSICAL EXAM: GENERAL: alert, weak, awake oriented x 3 HEENT: EOMI, Sclera non icteric, moist mucosa NECK: Supple, no JVD, trachea midline LUNGS: Decreased breath sounds bilaterally, left greater than right. No wheezing HEART: Regular rate and rhythm. Normal S1 and S2, without murmurs ABD: Abdomen soft, nontender. Bowel sounds present EXT: No clubbing cyanosis or edema NEURO: Alert and oriented to person, follows commands Vital Signs (last 8hr) Date Time Temp Pulse Resp B/P (MAP) Pulse Ox O2 Delivery O2 Flow Rate FiO2 06/11/24 11:42 97.9 70 18 90/54 93 Room Air 06/11/24 09:00 93 Nasal Cannula* 2 28 06/11/24 07:54 98.2 63 18 105/54 94 Room Air LABS: Hematology Labs: Test 06/11/24 04:08 Range/Units White Blood Count 4.5 L 4.8-10.8 K/uL Red Blood Count 4.00 4.00-5.50 MIL/uL Hemoglobin 11.6 L 12.0-16.0 g/dL Hematocrit 35.0 L 36-48 % Mean Corpuscular Volume 87.5 79-99 fL Mean Corpuscular Hemoglobin 29.0 27.0-33.0 pg Mean Corpuscular Hemoglobin Concent 33.1 32.0-36.0 g/dL Red Cell Distribution Width 17.7 H 11.0-15.5 % Platelet Count 75 L 130-400 K/uL Mean Platelet Volume 10.5 7.5-10.5 fL Immature Granulocyte % (Auto) 0.4 0-1 % Neutrophils (%) (Auto) 55.9 40.0-77.0 % Lymphocytes (%) (Auto) 21.6 21.0-51.0 % Monocytes (%) (Auto) 15.4 H 3.0-13.0 % Eosinophils (%) (Auto) 6.0 0.0-8.0 % Basophils (%) (Auto) 0.7 0.0-5.0 % Neutrophils # (Auto) 2.5 1.8-7.7 K/uL Lymphocytes # (Auto) 1.0 1.0-4.8 K/uL Monocytes # (Auto) 0.7 0.1-1.0 K/uL Eosinophils # (Auto) 0.27 0.00-0.70 K/uL Basophils # (Auto) 0.03 0.00-0.20 K/uL Absolute Immature Granulocyte (auto 0.02 0-1 K/uL Nucleated Red Blood Cells 0.0 0.0-0.19 % White Cell Morphology Comment See comments Chemistry Labs: Test 06/11/24 11:25 06/11/24 04:08 Range/Units Whole Blood Glucose 133 H 70-110 MG/DL Sodium Level 137 136-145 mmol/L Potassium Level 3.5 3.5-5.1 mmol/L Chloride Level 103 101-111 mmol/L Carbon Dioxide Level 24 21-32 mmol/L Blood Urea Nitrogen 11 7-18 mg/dL Creatinine 0.7 0.5-1.0 mg/dL Glomerular Filtration Rate Calc 99 >90 mL/min Random Glucose 142 #H 70-105 mg/dL Total Calcium 8.8 8.5-10.1 mg/dL DIAGNOSTICS / RADIOLOGY RESULTS: [ ] PLAN Continue supplemental oxygen Continue BiPAP as needed Hold off on thoracentesis procedure due to hypotension Continue midodrine to keep systolic blood pressure above 100 Reassess tomorrow NEURO: Minimize central acting medications as possible. Maintain fall precautions, adequate lighting during the day PULMONARY: Supplemental 02 as needed. Maintain aspiration precautions at all times CARDIOVASCULAR: Follow hemodynamics. Vital signs per facility protocol GI & NUTRITION: Continue with nutritional support. Continue stool softeners and laxatives as needed. KIDNEYS & ELECTROLYTES: Strict monitoring of intake, output and overall fluid balance. Avoid nephrotoxic medications to the extent possible. Medications to be dosed according to renal function. Monitor electrolytes and replace as needed ENDOCRINE: Maintain blood glucose between 100-180 at all times. Hypoglycemia protocol in place INFECTIOUS DISEASE: Trend temperature, WBC and procalcitonin level Follow cultures, deescalate antibiotics as soon as possible. Panculture if new onset fever ONCOLOGY/HEMATOLOGY/COAGULATION: Monitor for s/s of bleeding Monitor hemoglobin, coagulation studies as needed SKIN: Pressure ulcer prevention per facility protocol Specialty mattress ORTHO/REHAB: Continue PT/OT Prophylaxis: Continue GI and DVT prophylaxis Code Status: Full Resuscitation Disposition: TBD Other: Total patient care time exceeds 35 minutes excluding all procedures. ASHLEY ZARATE Jun 11, 2024 15:19
== END 2024-06-11 12:55 | disposition home or self-care (01) | DRG 189 ==
LOC: EDH 00:02 → EDHIP 02:18 → 4BH 18:45
PROVIDERS: ADMIT Internal Medicine; ATTEND Internal Medicine
PROC: 0W993ZZ Drainage of Right Pleural Cavity, Percutaneous Approach (ICD-10-PCS; principal; 2024-06-09)
DX: J96.21 Acute and chronic respiratory failure with hypoxia (principal); J90 Pleural effusion, not elsewhere classified; D69.6 Thrombocytopenia, unspecified; E11.65 Type 2 diabetes mellitus with hyperglycemia; E03.9 Hypothyroidism, unspecified; I10 Essential (primary) hypertension; E83.42 Hypomagnesemia; Z99.81 Dependence on supplemental oxygen; Z83.3 Family history of diabetes mellitus
CPT/HCPCS: 36415; 71045; 71260; 80048; 80053; 81003; 82550; 82945; 82948; 83036; 83605; 83615; 83735; 83880; 83986; 84145; 84155; 84157; 84484; 85025; 85610; 85730; 87071; 87205; 89051; 93005; 99285; G0378; J0696; J1940; J3475; J3490; Q9967